=== PATIENT | male | born 1960 | race American Indian/Alaskan Native ===

== ENCOUNTER 2019-11-21 06:38 | Emergency (ER) | payer MEDICARE, OTHER ==
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
[2019-11-21 07:23] LABS: ANION GAP 16.3; CHLORIDE,CL 106 mmol/L (101-111); SODIUM,NA 142 mmol/L (135-145)
[2019-11-21] MEDS ORDERED: Ondansetron 4 MG/2 ML SDV IV ONE (09:04)
[2019-11-21] MEDS ORDERED: MVI, Adult with Vitamin K 10 ML, Thiamine 100 MG, Folic Acid 1 MG in Lactated Ringers 1... IV ONE ×4 (09:04)
[2019-11-21] MEDS ORDERED: HYDROmorphone 1 MG/ML Syringe IVPUSH ONE (09:04)
[2019-11-21] MEDS ORDERED: Sodium Chloride 0.9% 10 ML Syringe FLUSH PRN (09:04)
== END 2019-11-21 09:53 ==
LOC: DL.ED 06:38
DX: S32.049A Unspecified fracture of fourth lumbar vertebra, initial encounter for closed fracture (principal); F10.229 Alcohol dependence with intoxication, unspecified; N39.498 Other specified urinary incontinence; I48.91 Unspecified atrial fibrillation; F12.10 Cannabis abuse, uncomplicated; Y04.2XXA Assault by strike against or bumped into by another person, initial encounter; Y90.8 Blood alcohol level of 240 mg/100 ml or more
CPT/HCPCS: 36415; 51702; 70450; 72128; 72131; 74176; 80053; 80305; 81001; 82150; 83690; 83735; 85025; 96374; 96375; 99285; G0480; J1170; J2405; J3411; J7120; J3490

== ENCOUNTER 2020-06-26 11:50 | Observation (INO) | payer MEDICARE, OTHER ==
--- NOTE | 2020-06-26 12:26 | CR ---
PROCEDURE INFORMATION: Exam: XR Chest, 1 View Exam date and time: 06/26/2020 12:02 PM Age: 60 years old Clinical indication: Chest pain TECHNIQUE: Imaging protocol: XR of the chest Views: 1 view. COMPARISON: CR Chest 1V Frontal 11/22/2018 8:56 PM FINDINGS: Lungs: Unremarkable. No consolidation. Calcification projecting over the right upper chest laterally likely is related to a rib ending, this is unchanged. Pleural space: Unremarkable. No pleural effusion. No pneumothorax. Heart/Mediastinum: Unremarkable. No cardiomegaly. Bones/joints: Unremarkable. IMPRESSION: No acute findings.
[2020-06-26 12:28] LABS: ANION GAP 18.4 mEq/L (7-13); CHLORIDE,CL 99 mmol/L (98-107); SODIUM,NA 138 mmol/L (136-145)
[2020-06-26] MEDS: Sodium Chloride 0.9% 10 ML Syringe FLUSH PRN ×3 (12:32→14:41)
[2020-06-26 12:37] LABS: PTT,PARTIAL THROMBOPLSTIN TIME 25.3 SEC (22.0-34.0)
[2020-06-26] MEDS ORDERED: MVI, Adult with Vitamin K 10 ML, Thiamine 100 MG, Folic Acid 1 MG in Lactated Ringers 1... IV ONE ×4 (12:46)
[2020-06-26] MEDS ORDERED: Potassium Chloride 10 MEQ Tab.ER PO ONE (12:47)
[2020-06-26] MEDS ORDERED: Acetaminophen 325 MG Tab PO PRN (17:22)
[2020-06-26] MEDS ORDERED: Docusate Sodium 100 MG Cap PO PRN (17:22)
[2020-06-26] MEDS ORDERED: LORazepam 0.5 MG Tab PO PRN (17:28)
[2020-06-26] MEDS ORDERED: Metoprolol Tartrate 5 MG/5 ML SDV IVPUSH ONE (17:29)
--- NOTE | 2020-06-26 17:30 | EDM.PDOC ---
Scribed by Anita Elam 06/26/20 1209 for Carina Horn MD ED HPI GENERAL MEDICAL PROBLEM - General Chief Complaint: Cardiovascular Problem Stated Complaint: IN BY AMBULANCE Time Seen by Provider: 06/26/20 11:36 Source of Information: Reports: Patient, EMS, EMS Notes Reviewed, RN, RN Notes Reviewed History Limitations: Reports: No Limitations - History of Present Illness INITIAL COMMENTS - FREE TEXT/NARRATIVE: Patient arrives by [facility] with chest pain at 7:00 A.M. He has been having chest pain that come and got for several weeks. He was a little shaky this morning. History of atrial fibrillation. He did not realize it was a weekend and walked to [facility], then realized it was closed so he called [facility]. EMS gave Aspirin 324mg [employer]. Nitro not given due to pain being resolved. Onset: Today Duration: Getting Worse Location: Reports: Chest Quality: Reports: Ache Severity: Moderate Improves with: Reports: None Worsens with: Reports: None Associated Symptoms: Reports: No Other Symptoms chest Pain Score (Numeric/FACES): 3 - Related Data Allergies Allergy/AdvReac Type Severity Reaction Status Date / Time iodine Allergy Airway Verified 06/26/20 17:02 Tightness Home Meds: Home Meds Aspirin [Aspirin EC] 81 mg PO DAILY 06/26/20 [History] Calcium Carbonate/Vitamin D3 [Calcium 250+D] 1 each PO DAILY 06/26/20 [History] Magnesium 250 mg PO DAILY 06/26/20 [History] Metoprolol Succinate 25 mg PO DAILY 06/26/20 [History] atorvaSTATin [Lipitor] 20 mg PO BEDTIME 06/26/20 [History] Past Medical History Cardiovascular History: Reports: Afib, CAD, High Cholesterol, ID Respiratory History: Reports: None Gastrointestinal History: Reports: GI Bleed Genitourinary History: Reports: None Musculoskeletal History: Reports: Back Pain, Chronic Other Musculoskeletal History: wrist Neurological History: Reports: None Psychiatric History: Reports: Addiction Endocrine/Metabolic History: Reports: Obesity/BMI 30+ Hematologic History: Reports: None Immunologic History: Reports: None Oncologic (Cancer) History: Reports: None Dermatologic History: Reports: None - Infectious Disease History Infectious Disease History: Reports: Chicken Pox - Past Surgical History Head Surgeries/Procedures: Reports: None HEENT Surgical History: Reports: None GI Surgical History: Reports: Hernia, Abdominal Musculoskeletal Surgical History: Reports: None Social & Family History - Family History Family Medical History: Noncontributory - Caffeine Use Caffeine Use: Reports: None - Alcohol Use Alcohol Use History: Yes - Recreational Drug Use Recreational Drug Use: Yes Recreational Drug Type: Reports: Marijuana/Hashish - Living Situation & Occupation Occupation: Unemployed ED ROS GENERAL - Review of Systems Review Of Systems: Comprehensive ROS is negative, except as noted in HPI. ED EXAM, GENERAL - Physical Exam Exam: See Below Exam Limited By: No Limitations General Appearance: Alert, No Apparent Distress, Anxious Eye Exam: Bilateral Eye: Normal Inspection Nose: No Blood, Other (Rosacea) Throat/Mouth: Normal Lips, Normal Voice, No Airway Compromise Head: Atraumatic, Normocephalic Neck: Normal Inspection, Supple, Non-Tender, Full Range of Motion Respiratory/Chest: No Respiratory Distress, Lungs Clear, Normal Breath Sounds, No Accessory Muscle Use, Chest Non-Tender Cardiovascular: Regular Rate, Rhythm, No Edema GI/Abdominal: Normal Bowel Sounds, Soft, Non-Tender Back Exam: Normal Inspection Extremities: Normal Inspection, Normal Range of Motion, Non-Tender, Normal Capillary Refill, No Pedal Edema Neurological: Alert, Oriented, No Motor/Sensory Deficits, Other (Mild tremor) Psychiatric: Anxious, Flat Affect Skin Exam: Warm, Dry, Intact EKG INTERPRETATION EKG Date: 06/26/20 Time: 11:45 Rhythm: Other (sinus rhythm) Rate (Beats/Min): 98 [place]: Normal P-Wave: Present QRS: Other (LFB) ST-T: Normal QT: Normal Comparison: Change From Previous EKG (previous showed A-fib with LAFB.) Course - Vital Signs Last Recorded V/S: Last Vital Signs Temp 99.4 F 06/26/20 16:00 Pulse 120 H 06/26/20 16:00 Resp 20 06/26/20 16:00 BP 118/69 06/26/20 16:00 Pulse Ox 98 06/26/20 16:00 - Orders/Labs/Meds Orders: Active Orders 24 hr Category Date Time Status EKG 12 Lead [EKG Documentation Completion] [RC] ONETIME Care 06/26/20 16:00 Active EKG 12 Lead [EKG Documentation Completion] [RC] STAT Care 06/26/20 11:40 Active Peripheral IV Care [RC] . DIRECTED Care 06/26/20 11:41 Active Regular Diet [DIET] Diet 06/26/20 Lunch Active Sodium Chloride 0.9% [Saline Flush] Med 06/26/20 11:40 Active 10 ml FLUSH ASDIRECTED PRN Peripheral IV Insertion Adult [OM.PC] Stat Oth 06/26/20 11:40 Ordered Medication Orders Acetaminophen (Tylenol) 650 mg PO Q4H PRN PRN Reason: Pain (Mild 1-3)/fever Aspirin (Halfprin) 81 mg PO DAILY [facility] Atorvastatin Calcium (Lipitor) 20 mg PO BEDTIME [facility] Docusate Sodium (Colace) 100 mg PO BID PRN PRN Reason: Constipation Enoxaparin Sodium (Lovenox) 40 mg SUBCUT DAILY [facility] Sodium Chloride (Normal Saline) 1,000 mls @ 125 mls/hr IV ASDIRECTED [facility] Metoprolol Succinate (Toprol Xl) 25 mg PO DAILY [facility] Nicotine (Habitrol) 7 mg TRDERM DAILY [facility] Non-Formulary Medication (Calcium Carbonate/Vitamin D3 [Calcium 250+D]) 1 each PO DAILY [facility] Non-Formulary Medication (Magnesium [Magnesium]) 250 mg PO DAILY [facility] Oxycodone/Acetaminophen (Percocet 325-5 Mg) 1 tab PO Q4H PRN PRN Reason: Pain (moderate 4-6) Sodium Chloride (Saline Flush) 10 ml FLUSH ASDIRECTED PRN PRN Reason: Keep Vein Open Last Admin: 06/26/20 14:41 Dose: 10 ml Documented by: Admin: 06/26/20 13:34 Dose: 10 ml Documented by: Admin: 06/26/20 12:32 Dose: 10 ml Documented by: MARISSA Labs: Laboratory Tests 06/26/20 06/26/20 06/26/20 Range/Units 11:52 11:52 11:52 WBC 9.8 (5.0-10.0) 10^3/uL RBC 5.16 (4.6-6.2) 10^6/uL Hgb 16.1 (14.0-18.0) g/dL Hct 45.6 (40.0-54.0) % MCV 88.4 D (80-100) fL MCH 31.2 (27.0-34.0) pg MCHC 35.3 H (33.0-35.0) g/dL Plt Count 213 (150-450) 10^3/uL Neut % (Auto) 69.3 (42.2-75.2) % Lymph % (Auto) 21.6 (20.5-50.1) % [place] % (Auto) 8.1 H (2-8) % Eos % (Auto) 0.6 L (1.0-3.0) % Baso % (Auto) 0.4 (0.0-1.0) % PT 10.4 (9.0-12.0) SEC INR 1.1 (0.9-1.2) APTT 25.3 (22.0-34.0) SEC Sodium 138 (136-145) mmol/L Potassium 3.4 L (3.5-5.1) mmol/L Chloride 99 (98-107) mmol/L Carbon Dioxide 24 (21-32) mmol/L Anion Gap 18.4 H (7-13) mEq/L BUN 11 (7-18) mg/dL Creatinine 1.05 (0.70-1.30) mg/dL Est Cr Clr Drug Dosing 83.49 mL/min Estimated GFR (MDRD) > 60 BUN/Creatinine Ratio 10.5 (No establ ref range) Glucose 118 H (74-99) mg/dL Calcium 8.2 L (8.5-10.1) mg/dL Magnesium 1.6 L (1.8-2.4) mg/dL Total Bilirubin 1.1 H (0.2-1.0) mg/dL AST 58 H (15-37) U/L ALT 38 (16-63) U/L Alkaline Phosphatase 177 H (46-116) U/L Troponin I 0.038 (0.000-0.056) ng/mL Total Protein 7.2 (6.4-8.2) g/dL Albumin 3.7 (3.4-5.0) g/dL Globulin 3.5 Albumin/Globulin Ratio 1.1 Lipase 80 (73-393) U/L TSH, Ultra Sensitive 1.40 (0.36-3.74) uIU/mL Urine Color (YELLOW) Urine Appearance (CLEAR) Urine pH (5.0-9.0) Ur Specific [place] (1.005-1.030) Urine Protein (NEGATIVE) Urine Glucose (UA) (NEGATIVE) Urine Ketones (NEGATIVE) Urine Occult Blood (NEGATIVE) Urine Nitrite (NEGATIVE) Urine Bilirubin (NEGATIVE) Urine Urobilinogen (0.2-1.0) mg/dL Ur Leukocyte Esterase (NEGATIVE) U Hyaline Cast (Auto) Urine RBC /HPF Urine WBC (0-5/HPF) /HPF Ur Epithelial Cells (NOT SEEN) /HPF Amorphous Sediment (NOT SEEN) /HPF Urine Bacteria (0-FEW/HPF) /HPF Fine Granular Casts (NOT SEEN) /LPF Urine Mucus (NOT SEEN) /LPF Urine Opiates Screen (NEGATIVE) Ur Oxycodone Screen (NEGATIVE) Urine Methadone Screen (NEGATIVE) Ur Barbiturates Screen (NEGATIVE) U Tricyclic Antidepress (NEGATIVE) Ur Phencyclidine Scrn (NEGATIVE) Ur Amphetamine Screen (NEGATIVE) U Methamphetamines Scrn (NEGATIVE) Urine MDMA Screen (NEGATIVE) U Benzodiazepines Scrn (NEGATIVE) Urine Cocaine Screen (NEGATIVE) U Marijuana (THC) Screen (NEGATIVE) Ethyl Alcohol 187 (0) mg/dL 06/26/20 06/26/20 06/26/20 Range/Units 14:50 14:50 16:09 WBC (5.0-10.0) 10^3/uL RBC (4.6-6.2) 10^6/uL Hgb (14.0-18.0) g/dL Hct (40.0-54.0) % MCV (80-100) fL MCH (27.0-34.0) pg MCHC (33.0-35.0) g/dL Plt Count (150-450) 10^3/uL Neut % (Auto) (42.2-75.2) % Lymph % (Auto) (20.5-50.1) % [place] % (Auto) (2-8) % Eos % (Auto) (1.0-3.0) % Baso % (Auto) (0.0-1.0) % PT (9.0-12.0) SEC INR (0.9-1.2) APTT (22.0-34.0) SEC Sodium (136-145) mmol/L Potassium (3.5-5.1) mmol/L Chloride (98-107) mmol/L Carbon Dioxide (21-32) mmol/L Anion Gap (7-13) mEq/L BUN (7-18) mg/dL Creatinine (0.70-1.30) mg/dL Est Cr Clr Drug Dosing mL/min Estimated GFR (MDRD) BUN/Creatinine Ratio (No establ ref range) Glucose (74-99) mg/dL Calcium (8.5-10.1) mg/dL Magnesium (1.8-2.4) mg/dL Total Bilirubin (0.2-1.0) mg/dL AST (15-37) U/L ALT (16-63) U/L Alkaline Phosphatase (46-116) U/L Troponin I 0.038 (0.000-0.056) ng/mL Total Protein (6.4-8.2) g/dL Albumin (3.4-5.0) g/dL Globulin Albumin/Globulin Ratio Lipase (73-393) U/L TSH, Ultra Sensitive (0.36-3.74) uIU/mL Urine Color [place] (YELLOW) Urine Appearance Slightly cloudy (CLEAR) Urine pH 7.0 (5.0-9.0) Ur Specific [place] 1.025 (1.005-1.030) Urine Protein 100 H (NEGATIVE) Urine Glucose (UA) Negative (NEGATIVE) Urine Ketones 40 H (NEGATIVE) Urine Occult Blood Trace-intact H (NEGATIVE) Urine Nitrite Negative (NEGATIVE) Urine Bilirubin Small H (NEGATIVE) Urine Urobilinogen 1.0 (0.2-1.0) mg/dL Ur Leukocyte Esterase Negative (NEGATIVE) U Hyaline Cast (Auto) Few Urine RBC 0-5 /HPF Urine WBC 0-5 (0-5/HPF) /HPF Ur Epithelial Cells Few (NOT SEEN) /HPF Amorphous Sediment Few (NOT SEEN) /HPF Urine Bacteria Few (0-FEW/HPF) /HPF Fine Granular Casts Few H (NOT SEEN) /LPF Urine Mucus Moderate H (NOT SEEN) /LPF Urine Opiates Screen Negative (NEGATIVE) Ur Oxycodone Screen Negative (NEGATIVE) Urine Methadone Screen Negative (NEGATIVE) Ur Barbiturates Screen Negative (NEGATIVE) U Tricyclic Antidepress Negative (NEGATIVE) Ur Phencyclidine Scrn Negative (NEGATIVE) Ur Amphetamine Screen Negative (NEGATIVE) U Methamphetamines Scrn Negative (NEGATIVE) Urine MDMA Screen Negative (NEGATIVE) U Benzodiazepines Scrn Negative (NEGATIVE) Urine Cocaine Screen Negative (NEGATIVE) U Marijuana (THC) Screen Positive H (NEGATIVE) Ethyl Alcohol (0) mg/dL Meds: Medications Generic Name Dose Route Start Last Admin Trade Name Freq PRN Reason Stop Dose Admin Acetaminophen 650 mg 06/26/20 17:22 Tylenol PO Q4H PRN Pain (Mild 1-3)/fever Aspirin 81 mg 06/27/20 09:00 Halfprin PO DAILY [facility] Atorvastatin Calcium 20 mg 06/26/20 21:00 Lipitor PO BEDTIME [facility] Docusate Sodium 100 mg 06/26/20 17:22 Colace PO BID PRN Constipation Enoxaparin Sodium 40 mg 06/26/20 17:30 Lovenox SUBCUT DAILY [facility] Sodium Chloride 1,000 mls @ 125 mls/hr 06/26/20 17:30 Normal Saline IV ASDIRECTED [facility] Metoprolol Succinate 25 mg 06/27/20 09:00 Toprol Xl PO DAILY [facility] Nicotine 7 mg 06/27/20 09:00 Habitrol TRDERM DAILY [facility] Non-Formulary Medication 1 each 06/27/20 09:00 Calcium Carbonate/Vitamin D3 [Calcium 250+D] PO DAILY [facility] Non-Formulary Medication 250 mg 06/27/20 09:00 Magnesium [Magnesium] PO DAILY [facility] Oxycodone/Acetaminophen 1 tab 06/26/20 17:22 Percocet 325-5 Mg PO Q4H PRN Pain (moderate 4-6) Sodium Chloride 10 ml 06/26/20 11:40 06/26/20 14:41 Saline Flush FLUSH 10 ml ASDIRECTED PRN Administration Keep Vein Open Discontinued Medications Generic Name Dose Route Start Last Admin Trade Name Freq PRN Reason Stop Dose Admin Multivitamins/Minerals 10 ml/ 1,011.2 mls @ 999 mls/hr 06/26/20 12:46 06/26/20 14:41 Thiamine HCl 100 mg/ Folic IV 06/26/20 13:46 Infused Acid 1 mg/ Lactated Ringer's .BOLUS ONE Infusion Potassium Chloride 40 meq 06/26/20 12:47 06/26/20 13:32 Klor-Con 10 PO 06/26/20 12:48 40 meq ONETIME ONE Administration - Radiology Interpretation Free Text/Narrative:: [facility] Final Radiology Report Call: [phone] assistance Online chat: [email or web address] Name: LIU COOPER Age: 60Years M Date: 06/26/2020 SSN: -- : [id number] Study: CR CHEST 1V FRONTAL Requesting Physician: CARINA HORN Images: 1 Addl Studies: Provided Clinical History: chest pain Contrast: Contrast Medium: Contrast Amount: Contrast Method: CONFIDENTIALITY STATEMENT This report is intended only for use by the referring physician, and only in accordance with law. If you received this in error, call [phone]. Page 1 of 1 PROCEDURE INFORMATION: Exam: XR Chest, 1 View Exam date and time: 06/26/2020 12:02 PM Age: 60 years old Clinical indication: Chest pain TECHNIQUE: Imaging protocol: XR of the chest Views: 1 view. COMPARISON: CR Chest 1V Frontal 11/22/2018 8:56 PM FINDINGS: Lungs: Unremarkable. No consolidation. Calcification projecting over the right upper chest laterally likely is related to a rib ending, this is unchanged. Pleural space: Unremarkable. No pleural effusion. No pneumothorax. Heart/Mediastinum: Unremarkable. No cardiomegaly. Bones/joints: Unremarkable. IMPRESSION: No acute findings. Thank you for allowing us to participate in the care of your patient. Dictated and Authenticated by: Pravin Godoy MD 06/26/2020 12:25 PM Central Time ([place] & [place]) - Re-Assessments/Exams Free Text/Narrative Re-Assessment/Exam: 06/26/20 17:28 Ischemic cardiac source of chest pain ruled out, but pt converted to A-fib with RVR. Plan to admit to Dr. Pak to obs. Departure - Departure Time of Disposition: 17:00 (admitted to Dr. Pak) Disposition: Refer to Observation Condition: Good, Undetermined Clinical Impression: Paroxysmal atrial fibrillation with rapid ventricular response Sepsis Event Note (ED) - Focused Exam Vital Signs: Vital Signs Temp Pulse Resp BP Pulse Ox 06/26/20 16:00 99.4 F 120 H 20 118/69 98 06/26/20 13:40 100.8 F H 83 20 118/71 97 06/26/20 11:42 98.1 F 88 19 121/83 99 - My Orders Last 24 Hours: My Active Orders 06/26/20 11:40 EKG 12 Lead [EKG Documentation Completion] [RC] STAT Sodium Chloride 0.9% [Saline Flush] 10 ml FLUSH ASDIRECTED PRN Peripheral IV Insertion Adult [OM.PC] Stat 06/26/20 11:41 Peripheral IV Care [RC] . DIRECTED 06/26/20 Lunch Regular Diet [DIET] 06/26/20 16:00 EKG 12 Lead [EKG Documentation Completion] [RC] ONETIME - Assessment/Plan Last 24 Hours: My Active Orders 06/26/20 11:40 EKG 12 Lead [EKG Documentation Completion] [RC] STAT Sodium Chloride 0.9% [Saline Flush] 10 ml FLUSH ASDIRECTED PRN Peripheral IV Insertion Adult [OM.PC] Stat 06/26/20 11:41 Peripheral IV Care [RC] . DIRECTED 06/26/20 Lunch Regular Diet [DIET] 06/26/20 16:00 EKG 12 Lead [EKG Documentation Completion] [RC] ONETIME I have read and agree with the documentation that has been completed regarding this visit. By signing this record, I attest that the documentation was completed in my physical presence and is an accurate record of the encounter.
[2020-06-26] MEDS ORDERED: LORazepam 2 MG/ML SDV IVPUSH PRN (17:35)
[2020-06-26] MEDS: Metoprolol Succinate 50 MG Tab.ER PO SCH (18:46)
[2020-06-26] MEDS: Enoxaparin 40 MG/0.4 ML Syringe SUBCUT SCH (18:47)
--- NOTE | 2020-06-26 19:10 | HP ---
CHIEF COMPLAINT: Chest pain. HISTORY OF PRESENT ILLNESS: The patient is a 60-year-old male with past medical history of lumbar compression fracture, alcohol abuse, marijuana abuse, and paroxysmal atrial fibrillation who was admitted through the emergency room because the patient was brought by ambulance, and at about noontime today, he walked about 1-1/2 miles and he twisted his knee and then he started having chest pain, palpitation, and diaphoresis. Because of this, he called an ambulance. He was brought into the emergency room, and in the emergency room, cardiac workup was done and 2 sets of troponin were done, and it came back negative, but while patient is in the emergency room, he went into atrial fibrillation with rapid ventricular response, and because of this, he was then admitted to observation for further evaluation and management. PAST MEDICAL HISTORY: As in HPI. HOME MEDICATIONS: Lipitor, metoprolol succinate, calcium carbonate, and aspirin. ALLERGIES: Iodine. REVIEW OF SYSTEMS: The patient denies any headaches, syncope, orthopnea, PND, fever, chills, abdominal pain, melena, hematochezia, or any other significant complaints. SOCIAL HISTORY: The patient smokes about 4 cigarettes a day, and he has been smoking for the last 30 years. He also drinks about a pint of vodka every time he gets his disability cheque, and he does it about once a month, and yesterday, he had alcohol because he recently got his cheque, but he does not drink every day. PHYSICAL EXAMINATION: General: The patient is very pleasant. He is alert and oriented, ambulatory, and not in any acute distress. SHEENT: Normocephalic. There are pink palpebral conjunctivae. Sclerae anicteric. No JVD, no lymphadenopathy. Heart: Irregular and tachycardic. No gallops. No rubs. Lungs: Equal bilaterally. No crackles, no wheezing. Abdomen: Moderately obese, soft, and nontender. Extremities: Negative for any pedal edema. No gross deformities. LABORATORY WORKUP: CBC: WBC 9.8, hemoglobin is 16.1, hematocrit is 45.6, and platelets 213. Prothrombin time, INR is 1.1. Comp panel: Potassium is 3.4, magnesium is 1.6, and AST is 58. The rest of the panel unremarkable and TSH is 1.4, which is within normal limits. Urinalysis is remarkable for protein of 100, otherwise, unremarkable. Urine drug screen is positive for marijuana screen. Alcohol level is 187. ADMITTING DIAGNOSES: 1. Atrial fibrillation with rapid ventricular response. 2. Alcohol intoxication. 3. Dyslipidemia. 4. History of lumbar compression fracture. 5. Hypomagnesemia. 6. Hypokalemia. 7.Left knee pain TREATMENT PLAN: The patient is going to be admitted to telemetry floor for observation. He will be placed on DT protocol and potassium and magnesium will be repleted, and another set of troponin will be done tomorrow, and the rest of the management as necessary. We will also resume his home medications. [facility] /[id number] MACK
[2020-06-26] MEDS: Sodium Chloride 0.9% 1,000 ML IV SCH (20:35)
[2020-06-26] MEDS: Acetaminophen/oxyCODONE 325-5 MG Tab PO PRN (20:40)
[2020-06-26] MEDS ORDERED: Thiamine 100 MG Tab PO SCH (21:00)
[2020-06-26] MEDS ORDERED: Folic Acid 1 MG Tab PO SCH (21:00)
[2020-06-26] MEDS ORDERED: Multivitamins, Therapeutic with Minerals Tab PO SCH (21:00)
[2020-06-26] MEDS ORDERED: atorvaSTATin 20 MG Tab PO SCH (21:00)
[2020-06-27] MEDS: Acetaminophen/oxyCODONE 325-5 MG Tab PO PRN ×2 (03:13→09:32)
[2020-06-27] MEDS: Sodium Chloride 0.9% 1,000 ML IV SCH (04:23)
[2020-06-27 06:50] LABS: ANION GAP 11.4 mEq/L (7-13); CHLORIDE,CL 103 mmol/L (98-107); SODIUM,NA 140 mmol/L (136-145)
[2020-06-27] MEDS: Enoxaparin 40 MG/0.4 ML Syringe SUBCUT SCH (08:29)
[2020-06-27] MEDS: Metoprolol Succinate 50 MG Tab.ER PO SCH (08:29)
[2020-06-27] MEDS ORDERED: Calcium Carbonate/Vitamin D3 1250 MG-200 Unit Tab PO SCH (09:00)
[2020-06-27] MEDS ORDERED: Non-Formulary Medication 1 Each (Magnesium [Magnesium] 250 MG) PO SCH (09:00)
[2020-06-27] MEDS ORDERED: Aspirin 81 MG Tab.EC PO SCH (09:00)
[2020-06-27] MEDS ORDERED: Potassium Chloride 10 MEQ Tab.ER PO ONE (09:00)
[2020-06-27] MEDS ORDERED: Nicotine 7 MG/24 Hr Patch TRDERM SCH (09:00)
[2020-06-27] MEDS ORDERED: Metoprolol Succinate 25 MG Tab.ER PO SCH (09:00)
--- NOTE | 2020-06-27 10:31 | PN ---
DATE: 06/27/2020 SUBJECTIVE: The patient is doing much better this morning, and the patient denies any more chest pain or palpitation, and he converted to sinus rhythm with IV metoprolol. The patient was also complaining of left knee pain, and x-ray of the left knee was ordered, but the official reading is still pending. Otherwise, no other complaints, and telemetry this morning is sinus rhythm with a rate of 58. OBJECTIVE: Vital Signs: Blood pressure is 104/60, pulse of 52, respirations of 18, temperature of 97.1, and O2 saturation is 97% on room air. Heart: Regular rate and rhythm. Normal S1 and S2. No gallops. No rubs. Lungs: Equal bilaterally. No crackles, no wheezing. Abdomen: Soft, nontender. Bowel sounds are positive. Extremities: Negative for any pedal edema. No calf tenderness. Examination of the left knee is negative for any gross deformities and no signs of cellulitis. LABORATORY DATA: Laboratory workup this morning. CBC: WBC 7.5, hemoglobin is 14.1, hematocrit is 41.5, and platelet is 181. Chem-6: Potassium is 3.4, magnesium is 1.7, and calcium of 8. The rest of the panel unremarkable. PLAN: We will discharge patient home today, and we will have him follow up with Drea Garcia at [facility] next week. CONDITION ON DISCHARGE: Improved. [facility] /[id number]
--- NOTE | 2020-06-27 11:56 | CR ---
PROCEDURE INFORMATION: Exam: XR Left Knee Exam date and time: 06/27/2020 8:00 AM Age: 60 years old Clinical indication: Pain; Knee; Left; Additional info: Pain/stiffness TECHNIQUE: Imaging protocol: XR Left knee. Views: 1 or 2 views. COMPARISON: MR Knee wo Cont Lt 12/18/2018 1:02 PM FINDINGS: Bones/joints: Advanced degenerative arthritis. Medial and joint compartment severe degenerative narrowing. Patellofemoral joint severe degeneration. Chondrocalcinosis. Small joint effusion. No fracture or dislocation. Soft tissues: Normal. IMPRESSION: 1. Advanced degenerative arthritis with joint space narrowing, chondrocalcinosis, and marginal joint osteophytes. 2. No acute fracture or dislocation. 3. Small joint effusion.
--- NOTE | 2020-06-27 19:04 | DISCH ---
FINAL DIAGNOSES: 1. Atrial fibrillation with rapid ventricular response and converted to sinus rhythm with intravenous metoprolol. 2. Alcohol intoxication. 3. Dyslipidemia. 4. History of lumbar compression fracture. 5. Hypomagnesemia. 6. Hypokalemia. 7. Left knee pain, possibly secondary to sprain. HOSPITAL COURSE: The patient was admitted to observation. He was placed on telemetry, and because of his atrial fibrillation with rapid ventricular response, the patient was given 5 mg of metoprolol tartrate and his oral metoprolol was increased to 50 mg a day. The patient converted to sinus rhythm, and he remained in sinus rhythm until discharge. His potassium was also repleted orally as well as magnesium. The patient was complaining of left knee pain, and an x-ray of the left knee, my reading did not show any gross fractures, and this was most likely secondary to sprain. The rest of the hospital course was unremarkable, and he was subsequently discharged, and he is going to follow up with his primary care provider in [facility] next week for a recheck. [facility] /[id number]
== END 2020-06-27 11:15 | disposition home or self-care (01) ==
LOC: DL.ED 11:50 → UNDOADMOB 16:52 → DL.MS 16:52
PROVIDERS: ADMIT Internal Medicine; ATTEND Internal Medicine
DX: I48.0 Paroxysmal atrial fibrillation (principal); F17.210 Nicotine dependence, cigarettes, uncomplicated; F10.129 Alcohol abuse with intoxication, unspecified; E78.5 Hyperlipidemia, unspecified; E83.42 Hypomagnesemia; E87.6 Hypokalemia; M25.562 Pain in left knee; E78.00 Pure hypercholesterolemia, unspecified; E66.9 Obesity, unspecified; Z91.041 Radiographic dye allergy status; Z79.899 Other long term (current) drug therapy; Z87.81 Personal history of (healed) traumatic fracture; Z68.31 Body mass index [BMI] 31.0-31.9, adult; Y90.0 Blood alcohol level of less than 20 mg/100 ml
CPT/HCPCS: 36415; 71045; 73560-LT; 80048; 80053; 80305-QW; 80307; 81001; 83690; 83735; 84443; 84484; 85025; 85610; 85730; 93005; 96361; 96365; 96372; 96375; 99285-25; A9270-GY; G0378; J1650; J3411; J3490; J7030; J7120

== ENCOUNTER 2021-02-28 14:19 | Emergency (ER) | payer MEDICARE, OTHER ==
[2021-02-28] MEDS ORDERED: Sodium Chloride 0.9% 10 ML Syringe FLUSH PRN (14:25)
--- NOTE | 2021-02-28 14:25 | EDM.PDOC ---
ED HPI GENERAL MEDICAL PROBLEM - General Chief Complaint: Flank Pain Stated Complaint: LEFT SIDE PAIN VERY TERRIBLE VOMMITING Time Seen by Provider: 02/28/21 14:24 Source of Information: Reports: Patient, Old Records, RN, RN Notes Reviewed History Limitations: Reports: No Limitations - History of Present Illness INITIAL COMMENTS - FREE TEXT/NARRATIVE: Pt presents to ER from home by POV with c/o severe left flank pain that radiates to the LLQ abdomen. Pt arrives in distress from pain, retching and vomiting. The pain began 2 days ago, and been waxing and waning, but now has become severe. He reports that he had many polyps removed during a colonoscopy in January 2021, and has had pink to blood stools since then. He says he informed the GI specialist and she was not concerned. He is on Eliquis for chronic a-fib. Onset: Sudden Duration: Waxing/Waning Location: Reports: Abdomen, Back Quality: Reports: Ache Severity: Severe Improves with: Reports: None Worsens with: Reports: None Associated Symptoms: Reports: No Other Symptoms Left Flank Pain Score (Numeric/FACES): 10 - Related Data Allergies Allergy/AdvReac Type Severity Reaction Status Date / Time iodine Allergy Airway Verified 06/26/20 17:02 Tightness Home Meds: Home Meds Aspirin [Aspirin EC] 81 mg PO DAILY 06/26/20 [History] Calcium Carbonate/Vitamin D3 [Calcium 250+D] 1 each PO DAILY 06/26/20 [History] atorvaSTATin [Lipitor] 20 mg PO BEDTIME 06/26/20 [History] Multivitamins/Minerals [Vitamins and Minerals] 1 tab PO BEDTIME tablet 06/27/20 [Rx] Acetaminophen 1,000 mg PO Q6HR PRN 09/27/20 [History] Diclofenac Sodium [Voltaren 1% Gel] 1 dose TOP ASDIRECTED PRN 09/27/20 [History] Magnesium Oxide 400 mg PO DAILY 09/27/20 [History] Metoprolol Succinate [Toprol XL] 25 mg PO DAILY 09/27/20 [History] Thiamine HCl [Vitamin B-1] 100 mg PO DAILY 09/27/20 [History] Past Medical History HEENT History: Reports: Impaired Vision Cardiovascular History: Reports: Afib, CAD, High Cholesterol, RI Other Cardiovascular History: RI in 2017 Respiratory History: Reports: None Gastrointestinal History: Reports: GI Bleed Genitourinary History: Reports: None Musculoskeletal History: Reports: Back Pain, Chronic Other Musculoskeletal History: wrist Neurological History: Reports: None Psychiatric History: Reports: Addiction Endocrine/Metabolic History: Reports: Obesity/BMI 30+ Hematologic History: Reports: None Immunologic History: Reports: None Oncologic (Cancer) History: Reports: None Dermatologic History: Reports: None - Infectious Disease History Infectious Disease History: Reports: Chicken Pox - Past Surgical History Head Surgeries/Procedures: Reports: None HEENT Surgical History: Reports: None GI Surgical History: Reports: Hernia, Abdominal Musculoskeletal Surgical History: Reports: None Social & Family History - Family History Family Medical History: No Pertinent Family History - Caffeine Use Caffeine Use: Reports: None - Living Situation & Occupation Occupation: Unemployed ED ROS GENERAL - Review of Systems Review Of Systems: Comprehensive ROS is negative, except as noted in HPI. ED EXAM, RENAL/ - Physical Exam Exam: See Below Exam Limited By: No Limitations General Appearance: Alert, WD/WN, No Apparent Distress Eye Exam: Bilateral Eye: Normal Inspection (No scleral icterus) Nose: Normal Inspection Throat/Mouth: Normal Inspection, Normal Lips, Normal Voice, No Airway Compromise Head: Atraumatic, Normocephalic Neck: Normal Inspection Respiratory/Chest: No Respiratory Distress, Lungs Clear, Normal Breath Sounds, No Accessory Muscle Use, Chest Non-Tender Cardiovascular: Regular Rate, Rhythm, Tachycardia GI/Abdominal: Normal Bowel Sounds, Soft, No Organomegaly, Guarding, Tender (LLQ, left flank tenderness). No: Rigid, Rebound (Male) Exam: Deferred Rectal (Males) Exam: Deferred Back Exam: CVA Tenderness (L). No: CVA Tenderness (R) Extremities: Normal Inspection Neurological: Alert, Oriented, No Motor/Sensory Deficits Psychiatric: Normal Mood Skin Exam: Warm, Intact, Normal Color, Diaphoretic Course - Vital Signs Last Recorded V/S: Last Vital Signs Temp 95.5 F L 02/28/21 14:38 Pulse 110 H 02/28/21 14:38 Resp 24 H 02/28/21 14:38 BP 145/84 H 02/28/21 14:38 Pulse Ox 100 02/28/21 14:38 - Orders/Labs/Meds Orders: Active Orders 24 hr Category Date Time Status Peripheral IV Care [RC] . DIRECTED Care 02/28/21 14:26 Active Sodium Chloride 0.9% [Saline Flush] Med 02/28/21 14:25 Active 10 ml FLUSH ASDIRECTED PRN Peripheral IV Insertion Adult [OM.PC] Stat Oth 02/28/21 14:25 Ordered Medication Orders Sodium Chloride (Sodium Chloride 0.9% 10 Ml Syringe) 10 ml FLUSH ASDIRECTED PRN PRN Reason: Keep Vein Open Last Admin: 02/28/21 14:42 Dose: 10 ml Documented by: MARILU Labs: Laboratory Tests 02/28/21 02/28/21 02/28/21 Range/Units 14:30 14:30 14:30 WBC 10.4 H (5.0-10.0) 10^3/uL RBC 5.31 (4.6-6.2) 10^6/uL Hgb 16.7 D (14.0-18.0) g/dL Hct 47.9 (40.0-54.0) % MCV 90.2 (80-100) fL MCH 31.5 (27.0-34.0) pg MCHC 34.9 (33.0-35.0) g/dL Plt Count 151 (150-450) 10^3/uL Neut % (Auto) 65.7 (42.2-75.2) % Lymph % (Auto) 26.1 (20.5-50.1) % Jenkins % (Auto) 7.2 (2-8) % Eos % (Auto) 0.2 L (1.0-3.0) % Baso % (Auto) 0.8 (0.0-1.0) % PT 10.5 (9.0-12.0) SEC INR 1.0 (0.9-1.2) APTT 24.4 (22.0-34.0) SEC Sodium 139 (136-145) mmol/L Potassium 3.3 L (3.5-5.1) mmol/L Chloride 98 (98-107) mmol/L Carbon Dioxide 24 (21-32) mmol/L Anion Gap 20.3 H (7-13) mEq/L BUN 9 (7-18) mg/dL Creatinine 1.04 (0.70-1.30) mg/dL Est Cr Clr Drug Dosing TNP Estimated GFR (MDRD) > 60 BUN/Creatinine Ratio 8.7 (No establ ref range) Glucose 121 H (70-99) mg/dL Lactic Acid (0.4-2.0) mmol/L Calcium 8.6 (8.5-10.1) mg/dL Total Bilirubin 1.2 H (0.2-1.0) mg/dL AST 83 H (15-37) U/L ALT 80 H (16-63) U/L Alkaline Phosphatase 180 H (46-116) U/L Total Protein 7.3 (6.4-8.2) g/dL Albumin 3.7 (3.4-5.0) g/dL Globulin 3.6 Albumin/Globulin Ratio 1.0 Amylase 35 (25-115) U/L Lipase 130 (73-393) U/L Urine Color (YELLOW) Urine Appearance (CLEAR) Urine pH (5.0-9.0) Ur Specific Grubbs (1.005-1.030) Urine Protein (NEGATIVE) Urine Glucose (UA) (NEGATIVE) Urine Ketones (NEGATIVE) Urine Occult Blood (NEGATIVE) Urine Nitrite (NEGATIVE) Urine Bilirubin (NEGATIVE) Urine Urobilinogen (0.2-1.0) mg/dL Ur Leukocyte Esterase (NEGATIVE) Urine RBC /HPF Urine WBC (0-5/HPF) /HPF Ur Epithelial Cells (NOT SEEN) /HPF Calcium Oxalate Crystal (NOT SEEN) /HPF Amorphous Sediment (NOT SEEN) /HPF Urine Bacteria (0-FEW/HPF) /HPF Urine Mucus (NOT SEEN) /LPF 02/28/21 02/28/21 Range/Units 14:30 16:16 WBC (5.0-10.0) 10^3/uL RBC (4.6-6.2) 10^6/uL Hgb (14.0-18.0) g/dL Hct (40.0-54.0) % MCV (80-100) fL MCH (27.0-34.0) pg MCHC (33.0-35.0) g/dL Plt Count (150-450) 10^3/uL Neut % (Auto) (42.2-75.2) % Lymph % (Auto) (20.5-50.1) % Jenkins % (Auto) (2-8) % Eos % (Auto) (1.0-3.0) % Baso % (Auto) (0.0-1.0) % PT (9.0-12.0) SEC INR (0.9-1.2) APTT (22.0-34.0) SEC Sodium (136-145) mmol/L Potassium (3.5-5.1) mmol/L Chloride (98-107) mmol/L Carbon Dioxide (21-32) mmol/L Anion Gap (7-13) mEq/L BUN (7-18) mg/dL Creatinine (0.70-1.30) mg/dL Est Cr Clr Drug Dosing Estimated GFR (MDRD) BUN/Creatinine Ratio (No establ ref range) Glucose (70-99) mg/dL Lactic Acid 6.0 H* (0.4-2.0) mmol/L Calcium (8.5-10.1) mg/dL Total Bilirubin (0.2-1.0) mg/dL AST (15-37) U/L ALT (16-63) U/L Alkaline Phosphatase (46-116) U/L Total Protein (6.4-8.2) g/dL Albumin (3.4-5.0) g/dL Globulin Albumin/Globulin Ratio Amylase (25-115) U/L Lipase (73-393) U/L Urine Color Kallie (YELLOW) Urine Appearance Cloudy (CLEAR) Urine pH 5.5 (5.0-9.0) Ur Specific Grubbs >= 1.030 (1.005-1.030) Urine Protein 30 H (NEGATIVE) Urine Glucose (UA) Negative (NEGATIVE) Urine Ketones Trace H (NEGATIVE) Urine Occult Blood Large H (NEGATIVE) Urine Nitrite Negative (NEGATIVE) Urine Bilirubin Small H (NEGATIVE) Urine Urobilinogen 0.2 (0.2-1.0) mg/dL Ur Leukocyte Esterase Negative (NEGATIVE) Urine RBC 75-100 H /HPF Urine WBC 0-5 (0-5/HPF) /HPF Ur Epithelial Cells Few (NOT SEEN) /HPF Calcium Oxalate Crystal Few H (NOT SEEN) /HPF Amorphous Sediment Few (NOT SEEN) /HPF Urine Bacteria Rare (0-FEW/HPF) /HPF Urine Mucus Moderate H (NOT SEEN) /LPF Meds: Medications Generic Name Dose Route Start Last Admin Trade Name Freq PRN Reason Stop Dose Admin Sodium Chloride 10 ml 02/28/21 14:25 02/28/21 14:42 Sodium Chloride 0.9% 10 Ml Syringe FLUSH 10 ml ASDIRECTED PRN Administration Keep Vein Open Discontinued Medications Generic Name Dose Route Start Last Admin Trade Name Charan PRN Reason Stop Dose Admin Hydromorphone HCl 1 mg 02/28/21 14:26 02/28/21 14:40 Hydromorphone 1 Mg/Ml Syringe IVPUSH 02/28/21 14:27 1 mg ONETIME ONE Administration Hydromorphone HCl Confirm 02/28/21 14:45 Hydromorphone 1 Mg/Ml Syringe Administered 02/28/21 14:46 Dose 1 mg .ROUTE .STK-MED ONE Sodium Chloride 1,000 mls @ 999 mls/hr 02/28/21 14:26 02/28/21 14:39 Normal Saline IV 02/28/21 15:26 999 mls/hr .BOLUS ONE Administration Ondansetron HCl 4 mg 02/28/21 14:26 02/28/21 14:41 Ondansetron 4 Mg/2 Ml Sdv IV 02/28/21 14:27 4 mg ONETIME ONE Administration - Radiology Interpretation Free Text/Narrative:: CT Abd/Pelvis: left distal ureter stone, obstructing, 5mm x 2.3mm. See Rad report. - Re-Assessments/Exams Free Text/Narrative Re-Assessment/Exam: 02/28/21 16:[address] Fleming via [facility]. He will have the pt set up for a tele-med. appointment tomorrow at 1000HRS, and tentatively plan to take the pt to the OR on 03/02/21. Departure - Departure Time of Disposition: 16:53 Disposition: Home, Self-Care 01 Condition: Good Clinical Impression: Kidney stone on left side, Lactic acidosis - Discharge Information *PRESCRIPTION DRUG MONITORING PROGRAM REVIEWED*: No *COPY OF PRESCRIPTION DRUG MONITORING REPORT IN PATIENT COURTNEY: No Instructions: Kidney Stones, Renal Colic Forms: ED Department Discharge Additional Instructions: Rx: Percocet 5mg/325mg Rx: Zofran 4mg You have a telemedicine appointment at [facility] tomorrow March 01 at 10:00AM with Lupe CUNNINGHAM from [facility]. Return to ER if your pain is uncontrolled or if you develop a fever. Sepsis Event Note (ED) - Focused Exam Vital Signs: Vital Signs Temp Pulse Resp BP Pulse Ox 02/28/21 14:38 95.5 F L 110 H 24 H 145/84 H 100 - My Orders Last 24 Hours: My Active Orders 02/28/21 14:25 Sodium Chloride 0.9% [Saline Flush] 10 ml FLUSH ASDIRECTED PRN Peripheral IV Insertion Adult [OM.PC] Stat 02/28/21 14:26 Peripheral IV Care [RC] . DIRECTED - Assessment/Plan Last 24 Hours: My Active Orders 02/28/21 14:25 Sodium Chloride 0.9% [Saline Flush] 10 ml FLUSH ASDIRECTED PRN Peripheral IV Insertion Adult [OM.PC] Stat 02/28/21 14:26 Peripheral IV Care [RC] . DIRECTED
[2021-02-28] MEDS ORDERED: Ondansetron 4 MG/2 ML SDV IV ONE ×2 (14:26→17:00)
[2021-02-28] MEDS ORDERED: Sodium Chloride 0.9% 1,000 ML IV ONE (14:26)
[2021-02-28] MEDS ORDERED: HYDROmorphone 1 MG/ML Syringe IVPUSH ONE ×2 (14:26→17:00)
[2021-02-28] MEDS ORDERED: HYDROmorphone 1 MG/ML Syringe ONE (14:45)
[2021-02-28 15:14] LABS: ANION GAP 20.3 mEq/L (7-13); CHLORIDE,CL 98 mmol/L (98-107); SODIUM,NA 139 mmol/L (136-145)
[2021-02-28 15:18] LABS: PTT,PARTIAL THROMBOPLSTIN TIME 24.4 SEC (22.0-34.0)
--- NOTE | 2021-02-28 15:39 | CT ---
EXAMINATION: Abdomen Pelvis wo Cont SEX: Male AGE: 60 years CLINICAL HISTORY: 60-year-old hypertensive 250 pound male with left flank/left lower quadrant (LLQ) abdominal pain. History of T12/L1 vertebral body fracture; surgery 6 months ago (several polyps removed). Blood in stools. Scan technique: Volume acquisition of data from the abdomen and pelvis (screening renal stone study) obtained with the patient lying supine on the Siemens multislice scanner [place], [place]. All data archived in the PACS system for storage, reformatting axial/sagittal/coronal planes and study. Interpretation: Abnormal. 1. Asymmetrically larger left kidney with poorly defined margins, mild pyelocaliectasis, and tiny 2.3 mm x 5.0 mm elliptical distal left ureteral calculus. Incidentally demonstrated punctate calcification lower pole calyx, contralateral right kidney. 2. No sign of solid renal cortical mass lesion (unenhanced exam). No intraluminal urinary bladder calcification. 3. Fatty liver. Dense gallbladder with at least one tiny dependent intraluminal gallstone (RUQ). 4. Sigmoid diverticulosis. No abdominal or pelvic mass lesion, inflammatory "dirty" peritoneal fat, signs of mechanical bowel obstruction, ascites or free intraperitoneal air. Stomach, spleen, adrenal glands and pancreas unremarkable. 5. Osteopenia and old compression fractures T12, L1, and particularly L4 vertebral bodies. 6. Normal caliber abdominal aorta. Cardiac silhouette unremarkable. No pericardial or pleural effusions. CONCLUSION: *Obstructing distal left ureteral calculus (stone). Tiny nonobstructing calculus right kidney. Sigmoid diverticulosis.
== END 2021-02-28 18:23 | disposition home or self-care (01) ==
LOC: DL.ED 14:19
DX: N20.2 Calculus of kidney with calculus of ureter (principal); I48.91 Unspecified atrial fibrillation; I25.10 Atherosclerotic heart disease of native coronary artery without angina pectoris; E78.00 Pure hypercholesterolemia, unspecified; I25.2 Old myocardial infarction; E66.9 Obesity, unspecified; Z91.048 Other nonmedicinal substance allergy status; Z79.899 Other long term (current) drug therapy; Z79.82 Long term (current) use of aspirin
CPT/HCPCS: 36415; 74176; 80053; 81001; 82150; 83605; 83690; 85025; 85610; 85730; 96374; 96375; 96376; 99284; 99284-25; J1170; J2405; J7030

== ENCOUNTER 2021-05-30 16:38 | Observation (INO) | payer MEDICARE, OTHER ==
[~2021-05-30 16:38] MED LIST: Norepinephrine 4 MG in Dextrose 5% in Water 246 ML IV SCH
--- NOTE | 2021-05-30 16:49 | EDM.PDOC ---
<Yenny Capone - Last Filed: 05/30/21 18:34> ED HPI GENERAL MEDICAL PROBLEM - General Chief Complaint: Back Pain or Injury Stated Complaint: AMBULANCE Time Seen by Provider: 05/30/21 16:44 Source of Information: Reports: Patient, EMS, Provider (Yuly, DIRECTOR OF CAMPUS RECREATION-C at [facility]), RN, RN Notes Reviewed History Limitations: Reports: No Limitations - History of Present Illness INITIAL COMMENTS - FREE TEXT/NARRATIVE: Liu is a 61 y/o male who presents to the ED via [facility] at the request of his [facility] provider, Yuly DIRECTOR OF CAMPUS RECREATION-C, for complaints of back pain and abdominal pain. The provider states the patient was unresponsive during his initial assessment and was unable to move extremities to commands; did not assess to pain and offered no GCS. Per report, the family stated the patient had felt unwell for several days voicing generalized complaints of chest pain, shortness of breath, abdominal pain, and back pain. The patient has a history paroxysmal AFib, CAD, and CVA. The patient was given Nitro SL by an RN at the [facility] due to the family reporting chest pain. VSS at the [facility] were 100/66 (pre Nitro), HR 78, 95% on RA with RR 16. EKG revealed SR with 1st Degree AVB. En route via EMS bolus was initiated for BP 70/30s. Upon arrival to this facility the patient is alert and oriented with a GCS of 15. He reports pain to his bilateral lower back and RLQ. He does attest to transient chest pain, palpitations, and shortness of breath which he denies at this time. He states he had several bouts of emesis this morning and has been tremulous. The patient denies recent illness, fever, dyspepsia, nausea, dysuria, hematuria, constipation, or diarrhea. He does report difficulty voiding at times. The patient reports his last drink of alcohol was at midnight last night; he smoked marijuana while drinking. The patient reports smoking about 2- 3 cigarettes per day. Back Pain Score (Numeric/FACES): 8 - Related Data Allergies Allergy/AdvReac Type Severity Reaction Status Date / Time iodine Allergy Airway Verified 05/30/21 16:54 Tightness Home Meds: Home Meds Aspirin [Aspirin EC] 81 mg PO DAILY 06/26/20 [History] Calcium Carbonate/Vitamin D3 [Calcium 250+D] 1 each PO DAILY 06/26/20 [History] Multivitamins/Minerals [Vitamins and Minerals] 1 tab PO BEDTIME tablet 06/27/20 [Rx] Acetaminophen 1,000 mg PO Q6HR PRN 09/27/20 [History] Diclofenac Sodium [Voltaren 1% Gel] 1 dose TOP ASDIRECTED PRN 09/27/20 [History] Magnesium Oxide 400 mg PO BID 09/27/20 [History] Metoprolol Succinate [Toprol XL] 25 mg PO DAILY 09/27/20 [History] Thiamine HCl [Vitamin B-1] 100 mg PO DAILY 09/27/20 [History] Apixaban [Eliquis] 5 mg PO BID 05/30/21 [History] Carboxymethylcellulose Sodium [Refresh Liquigel 1%] 2 drop EYEBOTH Q4HR 05/30/21 [History] Pravastatin [Pravachol] 20 mg PO DAILY 05/30/21 [History] Past Medical History HEENT History: Reports: Impaired Vision Cardiovascular History: Reports: Afib, CAD, High Cholesterol, MO Other Cardiovascular History: MO in 2017 Respiratory History: Reports: None Gastrointestinal History: Reports: GI Bleed Genitourinary History: Reports: None Musculoskeletal History: Reports: Back Pain, Chronic Other Musculoskeletal History: wrist Neurological History: Reports: None Psychiatric History: Reports: Addiction Endocrine/Metabolic History: Reports: Obesity/BMI 30+ Hematologic History: Reports: None Immunologic History: Reports: None Oncologic (Cancer) History: Reports: None Dermatologic History: Reports: None - Infectious Disease History Infectious Disease History: Reports: Chicken Pox - Past Surgical History Head Surgeries/Procedures: Reports: None HEENT Surgical History: Reports: None Cardiovascular Surgical History: Reports: None Respiratory Surgical History: Reports: None GI Surgical History: Reports: Hernia, Abdominal Neurological Surgical History: Reports: Other (See Below) Other Neurological Surgeries/Procedures: kyphoplasty L3 and L4 Musculoskeletal Surgical History: Reports: None Social & Family History - Family History Family Medical History: No Pertinent Family History - Caffeine Use Caffeine Use: Reports: None - Living Situation & Occupation Occupation: Unemployed ED ROS GENERAL - Review of Systems Review Of Systems: Comprehensive ROS is negative, except as noted in HPI. ED EXAM,LOWER BACK PAIN/INJURY - Physical Exam Exam: See Below Exam Limited By: No Limitations General Appearance: Alert, No Apparent Distress Eye Exam: Bilateral Eye: EOMI, Normal Inspection, PERRL (3mm) Ears: Normal External Exam, Hearing Grossly Normal Nose: Normal Inspection, Normal Mucosa, No Blood Throat/Mouth: Normal Inspection, Normal Oropharynx, Normal Voice, No Airway Compromise Head: Atraumatic, Normocephalic Neck: Normal Inspection, Supple, Non-Tender, Full Range of Motion Respiratory/Chest: No Respiratory Distress, No Accessory Muscle Use, Chest Non- Tender, Wheezing (Expiratory to bilateral bases). No: Crackles, Rales, Rhonchi, Stridor Cardiovascular: Normal Peripheral Pulses, Regular Rate, Rhythm, No Edema, No Gallop, No JVD, No Murmur, No Rub GI/Abdominal: Normal Bowel Sounds, Soft, No Distention, No Abnormal Bruit, No Mass, Pelvis Stable, Tender (To RLQ and bilateral upper quadrants), Hernia (Umbilical). No: Guarding, Rigid, Rebound (Male) Exam: Deferred Rectal (Males) Exam: Deferred Back Exam: Normal Inspection, Full Range of Motion, CVA Tenderness (L). No: CVA Tenderness (R), Paraspinal Tenderness, Vertebral Tenderness Extremities: Normal Inspection, Normal Range of Motion, Non-Tender, No Pedal Edema, Normal Capillary Refill Neurological: Alert, Normal Mood/Affect, Normal Dorsiflexion, CN II-XII Intact, Normal Plantar Flexion, No Motor/Sensory Deficits, Oriented x 3, Straight Leg Raise (L), Straight Leg Raise (R). No: Saddle Anesthesia Psychiatric: Normal Affect, Normal Mood Skin Exam: Warm, Dry, Normal Color, No Rash, Wound/Incision (1cm x 0.5cm area of erythema to inferior right nipple). No: Cyanosis, Jaundice, Mottled, Pallor #1 Interpretation EKG Date: 05/30/21 Time: 16:44 Rhythm: Other (Sinus bradycardia) Rate (Beats/Min): 57 Wallace: LAD-Left Wallace Deviation P-Wave: Present QRS: RBBB ST-T: Normal QT: Normal AR/PQ Interval: .162 Comparison: Change From Previous EKG (Compared to 06-26-20) EKG Interpretation Comments: SB; RBBB; No evidence of acute myocardial ischemia Course - Radiology Interpretation Free Text/Narrative:: [facility] [place] [facility] Final Radiology Report Call: [phone] assistance Online chat: [email or web address] Name: LIU COOPER Age: 61Years M Date: 05/30/2021 SSN: -- : [id number] Study: CT HEAD WO CONT Requesting Physician: Yenny Capone Images: 163 Addl Studies: Provided Clinical History: Episode of unresponsiveness Contrast: Without Contrast Medium: Contrast Amount: Contrast Method: Page 1 of 2 PROCEDURE INFORMATION: Exam: CT Head Without Contrast Exam date and time: 05/30/2021 6:03 PM Age: 61 years old Clinical indication: Altered mental status/memory loss; Other: Unresponsove; Additional info: Episode of unresponsiveness TECHNIQUE: Imaging protocol: Computed tomography of the head without contrast. Radiation optimization: All CT scans at this facility use at least one of these dose optimization techniques: automated exposure control; mA and/or kV adjustment per patient size (includes targeted exams where dose is matched to clinical indication); or iterative reconstruction. COMPARISON: CT Head wo Cont 11/21/2019 7:27 AM FINDINGS: Brain: Normal. No hemorrhage. Unremarkable white matter. No mass effect. Cerebral ventricles: No ventriculomegaly. Paranasal sinuses: Mild mucosal thickening observed in both maxillary sinuses. No fluid levels. Mastoid air cells: Visualized mastoid air cells are well aerated. Bones/joints: Unremarkable. No acute fracture. Soft tissues: Unremarkable. IMPRESSION: No acute intracranial abnormality. Thank you for allowing us to participate in the care of your patient. Dictated and Authenticated by: Cristopher Landaverde MD 05/30/2021 6:34 PM Central Time ([place] & [place]) Departure - Departure Disposition: Refer to Observation Clinical Impression: Alcohol withdrawal Qualifiers: Complication of substance-induced condition: uncomplicated Qualified Code(s): F10.230 - Alcohol dependence with withdrawal, uncomplicated - Discharge Information Forms: ED Department Discharge <Shea Squires - Last Filed: 05/30/21 21:47> ED HPI GENERAL MEDICAL PROBLEM - History of Present Illness INITIAL COMMENTS - FREE TEXT/NARRATIVE: NIH score = 0 Course - Vital Signs Last Recorded V/S: Last Vital Signs Temp 98.9 F 05/30/21 16:42 Pulse 65 05/30/21 20:25 Resp 20 05/30/21 20:25 BP 117/54 L 05/30/21 20:25 Pulse Ox 94 L 05/30/21 20:25 - Orders/Labs/Meds Orders: Active Orders 24 hr Category Date Time Status Admission Diagnosis [ADT] Stat ADT 05/30/21 21:43 Ordered Admission Status [Patient Status] [ADT] Routine ADT 05/30/21 21:43 Ordered EKG 12 Lead [EKG Documentation Completion] [RC] STAT Care 05/30/21 16:50 Active EKG Documentation Completion [RC] STAT Care 05/30/21 16:52 Active EKG Documentation Completion [RC] STAT Care 05/30/21 20:45 Active DRUG SCREEN URINE BIORAD [URCHEM] Urgent Lab 05/30/21 16:52 Ordered UA RFX VALERIE AND CULT IF INDIC [URIN] Stat Lab 05/30/21 16:52 Ordered Norepinephrine [Levophed] 4 mg Med 05/30/21 16:30 Active Dextrose 5% in Water 246 ml IV TITRATE Medication Orders Norepinephrine Bitartrate 4 mg (/ Dextrose/Water) 250 mls @ 7.5 mls/hr IV TITRATE BRENT; Protocol Labs: Laboratory Tests 05/30/21 05/30/21 05/30/21 Range/Units 16:45 16:45 16:45 WBC 8.0 (5.0-10.0) 10^3/uL RBC 4.54 L (4.6-6.2) 10^6/uL Hgb 14.5 D (14.0-18.0) g/dL Hct 42.1 (40.0-54.0) % MCV 92.7 (80-100) fL MCH 31.9 (27.0-34.0) pg MCHC 34.4 (33.0-35.0) g/dL Plt Count 211 (150-450) 10^3/uL Neut % (Auto) 68.9 (42.2-75.2) % Lymph % (Auto) 23.2 (20.5-50.1) % [place] % (Auto) 7.5 (2-8) % Eos % (Auto) 0.0 L (1.0-3.0) % Baso % (Auto) 0.4 (0.0-1.0) % PT 10.4 (9.0-12.0) SEC INR 1.0 (0.9-1.2) APTT 24.6 (22.0-34.0) SEC Sodium 142 (136-145) mmol/L Potassium 3.1 L (3.5-5.1) mmol/L Chloride 103 (98-107) mmol/L Carbon Dioxide 25 (21-32) mmol/L Anion Gap 17.1 H (7-13) mEq/L BUN 9 (7-18) mg/dL Creatinine 0.83 (0.70-1.30) mg/dL Est Cr Clr Drug Dosing 104.29 mL/min Estimated GFR (MDRD) > 60 BUN/Creatinine Ratio 10.8 (No establ ref range) Glucose 114 H (70-99) mg/dL Lactic Acid (0.4-2.0) mmol/L Calcium 8.4 L (8.5-10.1) mg/dL Magnesium 1.7 L (1.8-2.4) mg/dL Total Bilirubin 0.9 (0.2-1.0) mg/dL AST 38 H (15-37) U/L ALT 41 (16-63) U/L Alkaline Phosphatase 168 H (46-116) U/L Troponin I High Sens 82 H* (<=76) pg/mL C-Reactive Protein 0.9 (0.0-0.9) mg/dL B-Natriuretic Peptide 20 (0-100) pg/ml Total Protein 6.5 (6.4-8.2) g/dL Albumin 3.2 L (3.4-5.0) g/dL Globulin 3.3 Albumin/Globulin Ratio 0.97 Ethyl Alcohol 19 (0) mg/dL 05/30/21 05/30/21 05/30/21 Range/Units 16:45 20:45 20:45 WBC (5.0-10.0) 10^3/uL RBC (4.6-6.2) 10^6/uL Hgb (14.0-18.0) g/dL Hct (40.0-54.0) % MCV (80-100) fL MCH (27.0-34.0) pg MCHC (33.0-35.0) g/dL Plt Count (150-450) 10^3/uL Neut % (Auto) (42.2-75.2) % Lymph % (Auto) (20.5-50.1) % [place] % (Auto) (2-8) % Eos % (Auto) (1.0-3.0) % Baso % (Auto) (0.0-1.0) % PT (9.0-12.0) SEC INR (0.9-1.2) APTT (22.0-34.0) SEC Sodium (136-145) mmol/L Potassium (3.5-5.1) mmol/L Chloride (98-107) mmol/L Carbon Dioxide (21-32) mmol/L Anion Gap (7-13) mEq/L BUN (7-18) mg/dL Creatinine (0.70-1.30) mg/dL Est Cr Clr Drug Dosing mL/min Estimated GFR (MDRD) BUN/Creatinine Ratio (No establ ref range) Glucose (70-99) mg/dL Lactic Acid 2.6 H* 0.8 (0.4-2.0) mmol/L Calcium (8.5-10.1) mg/dL Magnesium (1.8-2.4) mg/dL Total Bilirubin (0.2-1.0) mg/dL AST (15-37) U/L ALT (16-63) U/L Alkaline Phosphatase (46-116) U/L Troponin I High Sens 82 H* (<=76) pg/mL C-Reactive Protein (0.0-0.9) mg/dL B-Natriuretic Peptide (0-100) pg/ml Total Protein (6.4-8.2) g/dL Albumin (3.4-5.0) g/dL Globulin Albumin/Globulin Ratio Ethyl Alcohol (0) mg/dL Meds: Medications Generic Name Dose Route Start Last Admin Trade Name Freq PRN Reason Stop Dose Admin Norepinephrine Bitartrate 4 mg 250 mls @ 7.5 mls/hr 05/30/21 16:30 / Dextrose/Water IV TITRATE BRENT Protocol 2 MCG/MIN Discontinued Medications Generic Name Dose Route Start Last Admin Trade Name Freq PRN Reason Stop Dose Admin Potassium Chloride 20 meq/ 100 mls @ 50 mls/hr 05/30/21 19:12 05/30/21 19:40 Premix IV 05/30/21 21:11 50 mls/hr ONETIME ONE Administration Magnesium Sulfate 2 gm/ Premix 50 mls @ 25 mls/hr 05/30/21 19:13 05/30/21 19:43 IV 05/30/21 21:12 25 mls/hr ONETIME ONE Administration Multivitamins/Minerals 10 ml/ 1,011.2 mls @ 999 mls/hr 05/30/21 19:13 05/30/21 19:41 Folic Acid 1 mg/ Thiamine HCl IV 05/30/21 20:13 999 mls/hr 100 mg/ Lactated Ringer's ONETIME ONE Administration Ketorolac Tromethamine 30 mg 05/30/21 18:34 05/30/21 19:30 Ketorolac 30 Mg/Ml Sdv IVPUSH 05/30/21 18:35 30 mg ONETIME ONE Administration - Radiology Interpretation Free Text/Narrative:: Chest/Abdomen/Pelvis CT wo contrast: PROCEDURE INFORMATION: Exam: CT Chest Without Contrast; Diagnostic Exam date and time: 05/30/2021 6:03 PM Age: 61 years old Clinical indication: Other: Flank pain; Shortness of breath; Additional info: Episode of unresponsiveness; HX kidney stones, transient chest pain, SOB TECHNIQUE: Imaging protocol: Diagnostic computed tomography of the chest without contrast. Radiation optimization: All CT scans at this facility use at least one of these dose optimization techniques: automated exposure control; mA and/or kV adjustment per patient size (includes targeted exams where dose is matched to clinical indication); or iterative reconstruction. COMPARISON: CT Abdomen Pelvis wo Cont 02/28/2021 3:04 PM FINDINGS: Lungs: Mild diffuse emphysematous changes are present. Pleural spaces: No pleural effusion. No pneumothorax. Heart: The heart is not enlarged. Aorta: There is no thoracic aortic aneurysm. Moderate aortic tortuosity.The lungs are clear. Lymph nodes: There is no evidence of lymphadenopathy. Bones/joints: Subtle rib deformities are identified in multiple locations bilaterally likely related to old rib fractures. No convincing acute rib fracture seen.There is moderate endplate sclerosis and osteophyte formation throughout the thoracic segment. Substantial degenerative change sternomanubrial joint. Mild compression deformity superior endplate T12. Soft tissues: There is no soft tissue abnormality seen. IMPRESSION: No acute findings. PROCEDURE INFORMATION: Exam: CT Abdomen And Pelvis Without Contrast Exam date and time: 05/30/2021 6:03 PM Age: 61 years old Clinical indication: Other: Flank pain; Shortness of breath; Additional info: Episode of unresponsiveness; HX kidney stones, transient chest pain, SOB TECHNIQUE: Imaging protocol: Computed tomography of the abdomen and pelvis without contrast. Radiation optimization: All CT scans at this facility use at least one of these dose optimization techniques: automated exposure control; mA and/or kV adjustment per patient size (includes targeted exams where dose is matched to clinical indication); or iterative reconstruction. COMPARISON: CT Abdomen Pelvis wo Cont 02/28/2021 3:04 PM FINDINGS: Liver: There is a diffuse decrease in hepatic parenchymal density, consistent with moderate hepatic steatosis. The liver is otherwise normal. Gallbladder and bile ducts: The gallbladder demonstrates increased intraluminal density suggesting sludge and/or tiny gallstones. A least 1 focal calcific gallstone is questioned, this is in the 1 mm range. There is no evidence of biliary ductal dilation. Pancreas: The pancreas is normal. Spleen: The spleen is normal. Adrenal glands: The adrenal glands are normal. Kidneys and ureters: There is a 2 mm calculus in the lower pole of the right kidney.There is no evidence of hydronephrosis. The ureters are normal. Bilateral mild to moderate perinephric inflammatory stranding. Stomach and bowel: Mild diffuse diverticulosis is present in the colon. There is no evidence of colitis/diverticulitis. Non-specific/nonobstructive intestinal gas pattern. Appendix: A normal appendix is identified. Intraperitoneal space: No free intraperitoneal air. No free intraperitoneal fluid. Vasculature: The vasculature is normal. There is no aortic aneurysm. Lymph nodes: No pelvic adenopathy. There is no adenopathy. Urinary bladder: The bladder is normal. Reproductive: Prostate is unremarkable. Seminal vesicles are unremarkable. Bones/joints: Status post L4 kyphoplasty . Mild compression form deformity superior endplate T12 and possibly L1. There is mild endplate sclerosis and osteophyte formation identified throughout the lumbar segment. Mild diffuse facet disease is present. Soft tissues: There is a fat-containing umbilical hernia. No bowel loops are involved. The defect in the wall measures 2.4 cm, the sac measures 6.7 cm. IMPRESSION: 1. Cholelithiasis 2. Hepatic steatos the is. 3. Fat containing periumbilical hernia as described. 4. Right renal calculus, no hydronephrosis. The distal left ureteral calculus identified on the prior study as cleared. 5. Bilateral mild to moderate perinephric inflammatory stranding. Pattern stable. 6. Status post L4 kyphoplasty. Mild compression deformities T12 and L1 suspect. No change. Thank you for allowing us to participate in the care of your patient. Dictated and Authenticated by: Pravin Godoy MD 05/30/2021 7:18 PM Central Time ([place] & [place]) See rad report - Re-Assessments/Exams Free Text/Narrative Re-Assessment/Exam: 05/30/21 21:46 Discussed patient case with Dr. Masters who agreed to accept the patient for observation admission. Departure - Departure Time of Disposition: 21:46 Condition: Fair - Discharge Information *PRESCRIPTION DRUG MONITORING PROGRAM REVIEWED*: No *COPY OF PRESCRIPTION DRUG MONITORING REPORT IN PATIENT COURTNEY: No Sepsis Event Note (ED) - Focused Exam Vital Signs: Vital Signs Temp Pulse Resp BP Pulse Ox 05/30/21 20:25 65 20 117/54 L 94 L 05/30/21 16:42 98.9 F 67 18 109/67 100 - My Orders Last 24 Hours: My Active Orders 05/30/21 20:45 EKG Documentation Completion [RC] STAT 05/30/21 21:43 Admission Diagnosis [ADT] Stat Admission Status [Patient Status] [ADT] Routine - Assessment/Plan Last 24 Hours: My Active Orders 05/30/21 20:45 EKG Documentation Completion [RC] STAT 05/30/21 21:43 Admission Diagnosis [ADT] Stat Admission Status [Patient Status] [ADT] Routine CIWAA - CIWAA CIWAA Nausea And Vomitin - Intermittent Nausea with Dry Heaves CIWAA Tremor: 2 CIWAA Paroxysmal Sweats: 2 CIWAA Anxiety: 2 CIWAA Agitation: 0 - Normal Activity CIWAA Tactile Disturbances: 1 - Very Mild Itching, Pins and [place], Burning or Numbness CIWAA Auditory Disturbances: 0 - Not Present CIWAA Visual Disturbances: 0 - Not Present CIWAA Headache, Fullness in Head: 1 - Very Mild CIWAA Orientation And Clouding Of Sensorium: 0 - Oriented and Can do Serial Additions CIWAA Scale Score: 12
[2021-05-30 17:24] LABS: PTT,PARTIAL THROMBOPLSTIN TIME 24.6 SEC (22.0-34.0)
[2021-05-30 17:28] LABS: ANION GAP 17.1 mEq/L (7-13); CHLORIDE,CL 103 mmol/L (98-107); SODIUM,NA 142 mmol/L (136-145)
[2021-05-30] MEDS ORDERED: Ketorolac 30 MG/ML SDV IVPUSH ONE (18:34)
--- NOTE | 2021-05-30 18:35 | CT ---
PROCEDURE INFORMATION: Exam: CT Head Without Contrast Exam date and time: 05/30/2021 6:03 PM Age: 61 years old Clinical indication: Altered mental status/memory loss; Other: Unresponsove; Additional info: Episode of unresponsiveness TECHNIQUE: Imaging protocol: Computed tomography of the head without contrast. Radiation optimization: All CT scans at this facility use at least one of these dose optimization techniques: automated exposure control; mA and/or kV adjustment per patient size (includes targeted exams where dose is matched to clinical indication); or iterative reconstruction. COMPARISON: CT Head wo Cont 11/21/2019 7:27 AM FINDINGS: Brain: Normal. No hemorrhage. Unremarkable white matter. No mass effect. Cerebral ventricles: No ventriculomegaly. Paranasal sinuses: Mild mucosal thickening observed in both maxillary sinuses. No fluid levels. Mastoid air cells: Visualized mastoid air cells are well aerated. Bones/joints: Unremarkable. No acute fracture. Soft tissues: Unremarkable. IMPRESSION: No acute intracranial abnormality.
[2021-05-30] MEDS ORDERED: Potassium Chloride 20 MEQ in Premix Bag 1 BAG IV ONE (19:12)
[2021-05-30] MEDS ORDERED: Magnesium Sulfate/Water 2 GM in Premix Bag 1 BAG IV ONE ×2 (19:13→22:30)
[2021-05-30] MEDS ORDERED: MVI, Adult with Vitamin K 10 ML, Folic Acid 1 MG, Thiamine 100 MG in Lactated Ringers 1... IV ONE ×4 (19:13)
--- NOTE | 2021-05-30 19:18 | CT ---
PROCEDURE INFORMATION: Exam: CT Chest Without Contrast; Diagnostic Exam date and time: 05/30/2021 6:03 PM Age: 61 years old Clinical indication: Other: Flank pain; Shortness of breath; Additional info: Episode of unresponsiveness; HX kidney stones, transient chest pain, SOB TECHNIQUE: Imaging protocol: Diagnostic computed tomography of the chest without contrast. Radiation optimization: All CT scans at this facility use at least one of these dose optimization techniques: automated exposure control; mA and/or kV adjustment per patient size (includes targeted exams where dose is matched to clinical indication); or iterative reconstruction. COMPARISON: CT Abdomen Pelvis wo Cont 02/28/2021 3:04 PM FINDINGS: Lungs: Mild diffuse emphysematous changes are present. Pleural spaces: No pleural effusion. No pneumothorax. Heart: The heart is not enlarged. Aorta: There is no thoracic aortic aneurysm. Moderate aortic tortuosity.The lungs are clear. Lymph nodes: There is no evidence of lymphadenopathy. Bones/joints: Subtle rib deformities are identified in multiple locations bilaterally likely related to old rib fractures. No convincing acute rib fracture seen.There is moderate endplate sclerosis and osteophyte formation throughout the thoracic segment. Substantial degenerative change sternomanubrial joint. Mild compression deformity superior endplate T12. Soft tissues: There is no soft tissue abnormality seen. IMPRESSION: No acute findings. PROCEDURE INFORMATION: Exam: CT Abdomen And Pelvis Without Contrast Exam date and time: 05/30/2021 6:03 PM Age: 61 years old Clinical indication: Other: Flank pain; Shortness of breath; Additional info: Episode of unresponsiveness; HX kidney stones, transient chest pain, SOB TECHNIQUE: Imaging protocol: Computed tomography of the abdomen and pelvis without contrast. Radiation optimization: All CT scans at this facility use at least one of these dose optimization techniques: automated exposure control; mA and/or kV adjustment per patient size (includes targeted exams where dose is matched to clinical indication); or iterative reconstruction. COMPARISON: CT Abdomen Pelvis wo Cont 02/28/2021 3:04 PM FINDINGS: Liver: There is a diffuse decrease in hepatic parenchymal density, consistent with moderate hepatic steatosis. The liver is otherwise normal. Gallbladder and bile ducts: The gallbladder demonstrates increased intraluminal density suggesting sludge and/or tiny gallstones. A least 1 focal calcific gallstone is questioned, this is in the 1 mm range. There is no evidence of biliary ductal dilation. Pancreas: The pancreas is normal. Spleen: The spleen is normal. Adrenal glands: The adrenal glands are normal. Kidneys and ureters: There is a 2 mm calculus in the lower pole of the right kidney.There is no evidence of hydronephrosis. The ureters are normal. Bilateral mild to moderate perinephric inflammatory stranding. Stomach and bowel: Mild diffuse diverticulosis is present in the colon. There is no evidence of colitis/diverticulitis. Non-specific/nonobstructive intestinal gas pattern. Appendix: A normal appendix is identified. Intraperitoneal space: No free intraperitoneal air. No free intraperitoneal fluid. Vasculature: The vasculature is normal. There is no aortic aneurysm. Lymph nodes: No pelvic adenopathy. There is no adenopathy. Urinary bladder: The bladder is normal. Reproductive: Prostate is unremarkable. Seminal vesicles are unremarkable. Bones/joints: Status post L4 kyphoplasty . Mild compression form deformity superior endplate T12 and possibly L1. There is mild endplate sclerosis and osteophyte formation identified throughout the lumbar segment. Mild diffuse facet disease is present. Soft tissues: There is a fat-containing umbilical hernia. No bowel loops are involved. The defect in the wall measures 2.4 cm, the sac measures 6.7 cm. IMPRESSION: 1. Cholelithiasis 2. Hepatic steatos the is. 3. Fat containing periumbilical hernia as described. 4. Right renal calculus, no hydronephrosis. The distal left ureteral calculus identified on the prior study as cleared. 5. Bilateral mild to moderate perinephric inflammatory stranding. Pattern stable. 6. Status post L4 kyphoplasty. Mild compression deformities T12 and L1 suspect. No change.
[2021-05-30] MEDS ORDERED: Sodium Chloride 0.9% 10 ML Syringe FLUSH PRN (22:28)
[2021-05-30] MEDS ORDERED: Acetaminophen 325 MG Tab PO PRN (22:28)
[2021-05-30] MEDS ORDERED: Ondansetron 4 MG/2 ML SDV IVPUSH PRN (22:28)
[2021-05-30] MEDS ORDERED: Sodium Chloride 0.9% 1,000 ML IV SCH (22:30)
[2021-05-30] MEDS ORDERED: LORazepam 2 MG/ML SDV IV PRN (22:35)
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
[2021-05-30] MEDS ORDERED: Non-Formulary Medication 1 Each (Diclofenac Sodium [Voltaren 1% Gel] 100 GM Tube) TOP PRN (22:45)
[2021-05-30] MEDS: Potassium Chloride 10 MEQ Tab.ER PO SCH (23:24)
[2021-05-30] MEDS: Metoprolol Tartrate 25 MG Tab PO SCH (23:25)
[2021-05-30] MEDS: Morphine 2 MG/ML SYRINGE IVPUSH PRN (23:54)
[2021-05-31] MEDS: Potassium Chloride 10 MEQ Tab.ER PO SCH (01:26)
[2021-05-31] MEDS: Carboxymethylcellulose Sodium 1% Ophth Gel 0.4 ML UD EYEBOTH SCH ×4 (02:55→14:28)
[2021-05-31] MEDS ORDERED: Isosorbide Mononitrate 60 MG Tab.ER PO SCH (06:00)
[2021-05-31] MEDS: Morphine 2 MG/ML SYRINGE IVPUSH PRN ×2 (06:03→10:16)
[2021-05-31 06:31] LABS: ANION GAP 11.5 mEq/L (7-13); CHLORIDE,CL 107 mmol/L (98-107); SODIUM,NA 142 mmol/L (136-145)
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
[2021-05-31] MEDS ORDERED: Aspirin 81 MG Tab.EC PO SCH (08:00)
[2021-05-31] MEDS: Metoprolol Tartrate 25 MG Tab PO SCH (09:57)
--- NOTE | 2021-05-31 15:21 | US ---
EXAMINATION: Carotid Comp SEX: Male AGE: 61 years CLINICAL HISTORY: 61-year-old obese hypertensive male smoker with clinical transient ischemic attack (TIA) and history of previous "stroke". INTERPRETATION: Negative exam. 1. Normal smooth intimal surface both common and internal carotid arteries. No atheromatous plaque. 2. Normal antegrade vertebral artery flow present bilaterally. 3. Peak systolic flow velocities right common carotid artery 87.7 cm/s; right internal carotid artery 70.7 cm/s; and right external carotid artery 109 cm/s. IC/CC ratio on the right 0.81. 4. Peak systolic flow velocity contralateral left common carotid artery 116 cm/s; left internal carotid artery 88.3 cm/s; and left external carotid artery 140 cm/s. IC/CC ratio 0.81. CONCLUSION: No abnormal atheromatous plaque buildup or elevated peak systolic flow velocities indicating carotid vascular disease or significant (surgical) stenosis common or internal carotid arteries. Normal vertebral artery flow.
--- NOTE | 2021-05-31 15:43 | PCM.DCSUM1 ---
Discharge Summary - Hospital Course Free Text/Narrative:: START OF DOCTOR EMAM[facility] DISCHARGE SUMMARY Date of Admission: May 30, 2021 Date of Discharge: 3:40 PM on May 31, 2021 Primary Diagnosis: Query TIA Secondary diagnosis: Query syncope for which all potential causes have been ruled out with the excep tion of echocardiogram results pending at time of discharge. If the patient did have a syncopal episode the only possible culprits at this time may have been an opiate overdose as his urine drug screen is positive for opiates and/or bradycardia due to beta-jon which he takes at home Chest pain, query ACS. troponin is minimally elevated but remained flat Hypokalemia, status post treatment Hypomagnesemia, status post treatment Nephrolithiasis, asymptomatic Paroxysmal atrial fibrillation Hepatic steatosis Query alcohol use COPD Grade 1 diastolic dysfunction Coronary artery disease, status post VT Hyperlipidemia Hypertension Obesity Smoker Cholelithiasis, asymptomatic Diverticulosis History of CVA Osteopenia Arthritis History of seizure Degenerative disc disease Marijuana abuse Consultations: None Condition on Discharge: Fair Disposition: The patient will be advised to follow-up with his primary care physician 5 to 7 days post discharge or with a provider The patient is advised to follow-up with cardiology 7 to 10 days post discharge given that his troponins were minimally elevated but flat and he may warrant cardiac stress testing, especially given all of his risk factors Discharge Medications: Thiamine 100 mg p.o. daily Pravastatin 20 mg p.o. daily Multivitamin 1 tab p.o. daily Magnesium oxide 400 mg p.o. daily Aspirin 81 mg p.o. daily Eliquis 5 mg p.o. twice daily Imdur 60 mg p.o. daily END OF DOCTOR EMAMIS DISCHARGE SUMMARY - Discharge Data Discharge Date: 05/31/21 Discharge Disposition: Home, Self-Care 01 Condition: Fair - Referral to Home Health Primary Care Physician: PCP None - Patient Summary/Data Consults: Consultations 05/30/21 22:28 OT Evaluation and Treatment [CONS] Routine PT Evaluation and Treatment [CONS] Routine - Patient Instructions Diet: Heart Healthy Diet, Low Sodium Activity: As Tolerated - Discharge Plan *PRESCRIPTION DRUG MONITORING PROGRAM REVIEWED*: No *COPY OF PRESCRIPTION DRUG MONITORING REPORT IN PATIENT COURTNEY: No Prescriptions/Med Rec: Isosorbide Mononitrate [Imdur] 60 mg PO ACBREAKFAST 30 Days #30 tab.er Home Medications: Home Meds Aspirin [Aspirin EC] 81 mg PO DAILY 06/26/20 [History] Multivitamins/Minerals [Vitamins and Minerals] 1 tab PO BEDTIME tablet 06/27/20 [Rx] Magnesium Oxide 400 mg PO DAILY 09/27/20 [History] Thiamine HCl [Vitamin B-1] 100 mg PO DAILY 09/27/20 [History] Apixaban [Eliquis] 5 mg PO BID 05/30/21 [History] Carboxymethylcellulose Sodium [Refresh Liquigel 1%] 2 drop EYEBOTH QID 05/30/21 [History] Pravastatin [Pravachol] 20 mg PO DAILY 05/30/21 [History] Isosorbide Mononitrate [Imdur] 60 mg PO ACBREAKFAST 30 Days #30 tab.er 05/31/21 [Rx] - Discharge Summary/Plan Comment DC Time >30 min.: Yes - General Info Functional Status: Reports: Pain Controlled - Review of Systems General: Reports: No Symptoms HEENT: Reports: No Symptoms Pulmonary: Reports: No Symptoms Cardiovascular: Reports: No Symptoms Gastrointestinal: Reports: No Symptoms Genitourinary: Reports: No Symptoms Musculoskeletal: Reports: No Symptoms Skin: Reports: No Symptoms Neurological: Reports: No Symptoms Psychiatric: Reports: No Symptoms - Patient Data Vitals - Most Recent: Last Vital Signs Temp 97.7 F 05/31/21 12:00 Pulse 53 L 05/31/21 12:00 Resp 18 05/31/21 12:00 BP 109/66 05/31/21 12:00 Pulse Ox 98 05/31/21 12:00 Weight - Most Recent: 242 lb I&O - Last 24 hours: Intake & Output 05/31/21 05/31/21 05/31/21 06:59 14:59 22:59 Intake Total 400 340 Output Total 0 325 Balance 400 15 Lab Results - Last 24 hrs: Laboratory Results - last 24 hr 05/30/21 05/30/21 05/30/21 Range/Units 16:45 16:45 16:45 WBC 8.0 (5.0-10.0) 10^3/uL RBC 4.54 L (4.6-6.2) 10^6/uL Hgb 14.5 D (14.0-18.0) g/dL Hct 42.1 (40.0-54.0) % MCV 92.7 (80-100) fL MCH 31.9 (27.0-34.0) pg MCHC 34.4 (33.0-35.0) g/dL Plt Count 211 (150-450) 10^3/uL Neut % (Auto) 68.9 (42.2-75.2) % Lymph % (Auto) 23.2 (20.5-50.1) % Fisher % (Auto) 7.5 (2-8) % Eos % (Auto) 0.0 L (1.0-3.0) % Baso % (Auto) 0.4 (0.0-1.0) % PT 10.4 (9.0-12.0) SEC INR 1.0 (0.9-1.2) APTT 24.6 (22.0-34.0) SEC Sodium 142 (136-145) mmol/L Potassium 3.1 L (3.5-5.1) mmol/L Chloride 103 (98-107) mmol/L Carbon Dioxide 25 (21-32) mmol/L Anion Gap 17.1 H (7-13) mEq/L BUN 9 (7-18) mg/dL Creatinine 0.83 (0.70-1.30) mg/dL Est Cr Clr Drug Dosing 104.29 mL/min Estimated GFR (MDRD) > 60 BUN/Creatinine Ratio 10.8 (No establ ref range) Glucose 114 H (70-99) mg/dL Lactic Acid (0.4-2.0) mmol/L Calcium 8.4 L (8.5-10.1) mg/dL Magnesium 1.7 L (1.8-2.4) mg/dL Total Bilirubin 0.9 (0.2-1.0) mg/dL AST 38 H (15-37) U/L ALT 41 (16-63) U/L Alkaline Phosphatase 168 H (46-116) U/L Troponin I High Sens 82 H* (<=76) pg/mL C-Reactive Protein 0.9 (0.0-0.9) mg/dL B-Natriuretic Peptide 20 (0-100) pg/ml Total Protein 6.5 (6.4-8.2) g/dL Albumin 3.2 L (3.4-5.0) g/dL Globulin 3.3 Albumin/Globulin Ratio 0.97 Triglycerides (0-149) mg/dL Cholesterol (0-199) mg/dL LDL Cholesterol, Calc (0-100) mg/dL HDL Cholesterol (40-59) mg/dL Vitamin B12 (193-986) pg/mL Folate (8.6-58.9) ng/mL Free T4 (0.76-1.46) ng/dL TSH, Ultra Sensitive (0.36-3.74) uIU/mL Urine Color (YELLOW) Urine Appearance (CLEAR) Urine pH (5.0-9.0) Ur Specific Geronimo (1.005-1.030) Urine Protein (NEGATIVE) Urine Glucose (UA) (NEGATIVE) Urine Ketones (NEGATIVE) Urine Occult Blood (NEGATIVE) Urine Nitrite (NEGATIVE) Urine Bilirubin (NEGATIVE) Urine Urobilinogen (0.2-1.0) mg/dL Ur Leukocyte Esterase (NEGATIVE) Urine RBC /HPF Urine WBC (0-5/HPF) /HPF Ur Epithelial Cells (NOT SEEN) /HPF Urine Bacteria (0-FEW/HPF) /HPF Urine Mucus (NOT SEEN) /LPF Urine Opiates Screen (NEGATIVE) Ur Oxycodone Screen (NEGATIVE) Urine Methadone Screen (NEGATIVE) Ur Barbiturates Screen (NEGATIVE) U Tricyclic Antidepress (NEGATIVE) Ur Phencyclidine Scrn (NEGATIVE) Ur Amphetamine Screen (NEGATIVE) U Methamphetamines Scrn (NEGATIVE) Urine MDMA Screen (NEGATIVE) U Benzodiazepines Scrn (NEGATIVE) Urine Cocaine Screen (NEGATIVE) U Marijuana (THC) Screen (NEGATIVE) Ethyl Alcohol 19 (0) mg/dL SARS-CoV-2 RNA (ESTER) (NEGATIVE) 05/30/21 05/30/21 05/30/21 Range/Units 16:45 20:45 20:45 WBC (5.0-10.0) 10^3/uL RBC (4.6-6.2) 10^6/uL Hgb (14.0-18.0) g/dL Hct (40.0-54.0) % MCV (80-100) fL MCH (27.0-34.0) pg MCHC (33.0-35.0) g/dL Plt Count (150-450) 10^3/uL Neut % (Auto) (42.2-75.2) % Lymph % (Auto) (20.5-50.1) % Fisher % (Auto) (2-8) % Eos % (Auto) (1.0-3.0) % Baso % (Auto) (0.0-1.0) % PT (9.0-12.0) SEC INR (0.9-1.2) APTT (22.0-34.0) SEC Sodium (136-145) mmol/L Potassium (3.5-5.1) mmol/L Chloride (98-107) mmol/L Carbon Dioxide (21-32) mmol/L Anion Gap (7-13) mEq/L BUN (7-18) mg/dL Creatinine (0.70-1.30) mg/dL Est Cr Clr Drug Dosing mL/min Estimated GFR (MDRD) BUN/Creatinine Ratio (No establ ref range) Glucose (70-99) mg/dL Lactic Acid 2.6 H* 0.8 (0.4-2.0) mmol/L Calcium (8.5-10.1) mg/dL Magnesium (1.8-2.4) mg/dL Total Bilirubin (0.2-1.0) mg/dL AST (15-37) U/L ALT (16-63) U/L Alkaline Phosphatase (46-116) U/L Troponin I High Sens 82 H* (<=76) pg/mL C-Reactive Protein (0.0-0.9) mg/dL B-Natriuretic Peptide (0-100) pg/ml Total Protein (6.4-8.2) g/dL Albumin (3.4-5.0) g/dL Globulin Albumin/Globulin Ratio Triglycerides (0-149) mg/dL Cholesterol (0-199) mg/dL LDL Cholesterol, Calc (0-100) mg/dL HDL Cholesterol (40-59) mg/dL Vitamin B12 (193-986) pg/mL Folate (8.6-58.9) ng/mL Free T4 (0.76-1.46) ng/dL TSH, Ultra Sensitive (0.36-3.74) uIU/mL Urine Color (YELLOW) Urine Appearance (CLEAR) Urine pH (5.0-9.0) Ur Specific Geronimo (1.005-1.030) Urine Protein (NEGATIVE) Urine Glucose (UA) (NEGATIVE) Urine Ketones (NEGATIVE) Urine Occult Blood (NEGATIVE) Urine Nitrite (NEGATIVE) Urine Bilirubin (NEGATIVE) Urine Urobilinogen (0.2-1.0) mg/dL Ur Leukocyte Esterase (NEGATIVE) Urine RBC /HPF Urine WBC (0-5/HPF) /HPF Ur Epithelial Cells (NOT SEEN) /HPF Urine Bacteria (0-FEW/HPF) /HPF Urine Mucus (NOT SEEN) /LPF Urine Opiates Screen (NEGATIVE) Ur Oxycodone Screen (NEGATIVE) Urine Methadone Screen (NEGATIVE) Ur Barbiturates Screen (NEGATIVE) U Tricyclic Antidepress (NEGATIVE) Ur Phencyclidine Scrn (NEGATIVE) Ur Amphetamine Screen (NEGATIVE) U Methamphetamines Scrn (NEGATIVE) Urine MDMA Screen (NEGATIVE) U Benzodiazepines Scrn (NEGATIVE) Urine Cocaine Screen (NEGATIVE) U Marijuana (THC) Screen (NEGATIVE) Ethyl Alcohol (0) mg/dL SARS-CoV-2 RNA (ESTRE) (NEGATIVE) 05/30/21 05/30/21 05/30/21 Range/Units 20:45 21:56 23:55 WBC (5.0-10.0) 10^3/uL RBC (4.6-6.2) 10^6/uL Hgb (14.0-18.0) g/dL Hct (40.0-54.0) % MCV (80-100) fL MCH (27.0-34.0) pg MCHC (33.0-35.0) g/dL Plt Count (150-450) 10^3/uL Neut % (Auto) (42.2-75.2) % Lymph % (Auto) (20.5-50.1) % Fisher % (Auto) (2-8) % Eos % (Auto) (1.0-3.0) % Baso % (Auto) (0.0-1.0) % PT (9.0-12.0) SEC INR (0.9-1.2) APTT (22.0-34.0) SEC Sodium (136-145) mmol/L Potassium (3.5-5.1) mmol/L Chloride (98-107) mmol/L Carbon Dioxide (21-32) mmol/L Anion Gap (7-13) mEq/L BUN (7-18) mg/dL Creatinine (0.70-1.30) mg/dL Est Cr Clr Drug Dosing mL/min Estimated GFR (MDRD) BUN/Creatinine Ratio (No establ ref range) Glucose (70-99) mg/dL Lactic Acid (0.4-2.0) mmol/L Calcium (8.5-10.1) mg/dL Magnesium (1.8-2.4) mg/dL Total Bilirubin (0.2-1.0) mg/dL AST (15-37) U/L ALT (16-63) U/L Alkaline Phosphatase (46-116) U/L Troponin I High Sens 83 H* (<=76) pg/mL C-Reactive Protein (0.0-0.9) mg/dL B-Natriuretic Peptide (0-100) pg/ml Total Protein (6.4-8.2) g/dL Albumin (3.4-5.0) g/dL Globulin Albumin/Globulin Ratio Triglycerides (0-149) mg/dL Cholesterol (0-199) mg/dL LDL Cholesterol, Calc (0-100) mg/dL HDL Cholesterol (40-59) mg/dL Vitamin B12 1095 H (193-986) pg/mL Folate > 20.0 (8.6-58.9) ng/mL Free T4 1.27 (0.76-1.46) ng/dL TSH, Ultra Sensitive 1.48 (0.36-3.74) uIU/mL Urine Color (YELLOW) Urine Appearance (CLEAR) Urine pH (5.0-9.0) Ur Specific Geronimo (1.005-1.030) Urine Protein (NEGATIVE) Urine Glucose (UA) (NEGATIVE) Urine Ketones (NEGATIVE) Urine Occult Blood (NEGATIVE) Urine Nitrite (NEGATIVE) Urine Bilirubin (NEGATIVE) Urine Urobilinogen (0.2-1.0) mg/dL Ur Leukocyte Esterase (NEGATIVE) Urine RBC /HPF Urine WBC (0-5/HPF) /HPF Ur Epithelial Cells (NOT SEEN) /HPF Urine Bacteria (0-FEW/HPF) /HPF Urine Mucus (NOT SEEN) /LPF Urine Opiates Screen (NEGATIVE) Ur Oxycodone Screen (NEGATIVE) Urine Methadone Screen (NEGATIVE) Ur Barbiturates Screen (NEGATIVE) U Tricyclic Antidepress (NEGATIVE) Ur Phencyclidine Scrn (NEGATIVE) Ur Amphetamine Screen (NEGATIVE) U Methamphetamines Scrn (NEGATIVE) Urine MDMA Screen (NEGATIVE) U Benzodiazepines Scrn (NEGATIVE) Urine Cocaine Screen (NEGATIVE) U Marijuana (THC) Screen (NEGATIVE) Ethyl Alcohol (0) mg/dL SARS-CoV-2 RNA (ESTER) Negative (NEGATIVE) 05/31/21 05/31/21 05/31/21 Range/Units 05:55 05:55 08:07 WBC (5.0-10.0) 10^3/uL RBC (4.6-6.2) 10^6/uL Hgb (14.0-18.0) g/dL Hct (40.0-54.0) % MCV (80-100) fL MCH (27.0-34.0) pg MCHC (33.0-35.0) g/dL Plt Count (150-450) 10^3/uL Neut % (Auto) (42.2-75.2) % Lymph % (Auto) (20.5-50.1) % Fisher % (Auto) (2-8) % Eos % (Auto) (1.0-3.0) % Baso % (Auto) (0.0-1.0) % PT (9.0-12.0) SEC INR (0.9-1.2) APTT (22.0-34.0) SEC Sodium 142 (136-145) mmol/L Potassium 3.5 (3.5-5.1) mmol/L Chloride 107 (98-107) mmol/L Carbon Dioxide 27 (21-32) mmol/L Anion Gap 11.5 (7-13) mEq/L BUN 11 (7-18) mg/dL Creatinine 0.95 (0.70-1.30) mg/dL Est Cr Clr Drug Dosing 91.11 mL/min Estimated GFR (MDRD) > 60 BUN/Creatinine Ratio 11.6 (No establ ref range) Glucose 95 (70-99) mg/dL Lactic Acid (0.4-2.0) mmol/L Calcium 7.9 L (8.5-10.1) mg/dL Magnesium 2.7 H (1.8-2.4) mg/dL Total Bilirubin 1.4 H (0.2-1.0) mg/dL AST 31 (15-37) U/L ALT 34 (16-63) U/L Alkaline Phosphatase 149 H (46-116) U/L Troponin I High Sens 84 H* (<=76) pg/mL C-Reactive Protein (0.0-0.9) mg/dL B-Natriuretic Peptide (0-100) pg/ml Total Protein 5.7 L (6.4-8.2) g/dL Albumin 2.9 L (3.4-5.0) g/dL Globulin 2.8 Albumin/Globulin Ratio 1.04 Triglycerides 67 (0-149) mg/dL Cholesterol 112 (0-199) mg/dL LDL Cholesterol, Calc 37 (0-100) mg/dL HDL Cholesterol 62 H (40-59) mg/dL Vitamin B12 (193-986) pg/mL Folate (8.6-58.9) ng/mL Free T4 (0.76-1.46) ng/dL TSH, Ultra Sensitive (0.36-3.74) uIU/mL Urine Color Kallie (YELLOW) Urine Appearance Clear (CLEAR) Urine pH 6.5 (5.0-9.0) Ur Specific Geronimo >= 1.030 (1.005-1.030) Urine Protein 30 H (NEGATIVE) Urine Glucose (UA) 100 H (NEGATIVE) Urine Ketones Negative (NEGATIVE) Urine Occult Blood Negative (NEGATIVE) Urine Nitrite Negative (NEGATIVE) Urine Bilirubin Small H (NEGATIVE) Urine Urobilinogen 0.2 (0.2-1.0) mg/dL Ur Leukocyte Esterase Negative (NEGATIVE) Urine RBC Not seen /HPF Urine WBC 0-5 (0-5/HPF) /HPF Ur Epithelial Cells Few (NOT SEEN) /HPF Urine Bacteria Not seen (0-FEW/HPF) /HPF Urine Mucus Many H (NOT SEEN) /LPF Urine Opiates Screen (NEGATIVE) Ur Oxycodone Screen (NEGATIVE) Urine Methadone Screen (NEGATIVE) Ur Barbiturates Screen (NEGATIVE) U Tricyclic Antidepress (NEGATIVE) Ur Phencyclidine Scrn (NEGATIVE) Ur Amphetamine Screen (NEGATIVE) U Methamphetamines Scrn (NEGATIVE) Urine MDMA Screen (NEGATIVE) U Benzodiazepines Scrn (NEGATIVE) Urine Cocaine Screen (NEGATIVE) U Marijuana (THC) Screen (NEGATIVE) Ethyl Alcohol (0) mg/dL SARS-CoV-2 RNA (ESTER) (NEGATIVE) 05/31/21 Range/Units 08:07 WBC (5.0-10.0) 10^3/uL RBC (4.6-6.2) 10^6/uL Hgb (14.0-18.0) g/dL Hct (40.0-54.0) % MCV (80-100) fL MCH (27.0-34.0) pg MCHC (33.0-35.0) g/dL Plt Count (150-450) 10^3/uL Neut % (Auto) (42.2-75.2) % Lymph % (Auto) (20.5-50.1) % Fisher % (Auto) (2-8) % Eos % (Auto) (1.0-3.0) % Baso % (Auto) (0.0-1.0) % PT (9.0-12.0) SEC INR (0.9-1.2) APTT (22.0-34.0) SEC Sodium (136-145) mmol/L Potassium (3.5-5.1) mmol/L Chloride (98-107) mmol/L Carbon Dioxide (21-32) mmol/L Anion Gap (7-13) mEq/L BUN (7-18) mg/dL Creatinine (0.70-1.30) mg/dL Est Cr Clr Drug Dosing mL/min Estimated GFR (MDRD) BUN/Creatinine Ratio (No establ ref range) Glucose (70-99) mg/dL Lactic Acid (0.4-2.0) mmol/L Calcium (8.5-10.1) mg/dL Magnesium (1.8-2.4) mg/dL Total Bilirubin (0.2-1.0) mg/dL AST (15-37) U/L ALT (16-63) U/L Alkaline Phosphatase (46-116) U/L Troponin I High Sens (<=76) pg/mL C-Reactive Protein (0.0-0.9) mg/dL B-Natriuretic Peptide (0-100) pg/ml Total Protein (6.4-8.2) g/dL Albumin (3.4-5.0) g/dL Globulin Albumin/Globulin Ratio Triglycerides (0-149) mg/dL Cholesterol (0-199) mg/dL LDL Cholesterol, Calc (0-100) mg/dL HDL Cholesterol (40-59) mg/dL Vitamin B12 (193-986) pg/mL Folate (8.6-58.9) ng/mL Free T4 (0.76-1.46) ng/dL TSH, Ultra Sensitive (0.36-3.74) uIU/mL Urine Color (YELLOW) Urine Appearance (CLEAR) Urine pH (5.0-9.0) Ur Specific Geronimo (1.005-1.030) Urine Protein (NEGATIVE) Urine Glucose (UA) (NEGATIVE) Urine Ketones (NEGATIVE) Urine Occult Blood (NEGATIVE) Urine Nitrite (NEGATIVE) Urine Bilirubin (NEGATIVE) Urine Urobilinogen (0.2-1.0) mg/dL Ur Leukocyte Esterase (NEGATIVE) Urine RBC /HPF Urine WBC (0-5/HPF) /HPF Ur Epithelial Cells (NOT SEEN) /HPF Urine Bacteria (0-FEW/HPF) /HPF Urine Mucus (NOT SEEN) /LPF Urine Opiates Screen Positive H (NEGATIVE) Ur Oxycodone Screen Negative (NEGATIVE) Urine Methadone Screen Negative (NEGATIVE) Ur Barbiturates Screen Negative (NEGATIVE) U Tricyclic Antidepress Negative (NEGATIVE) Ur Phencyclidine Scrn Negative (NEGATIVE) Ur Amphetamine Screen Negative (NEGATIVE) U Methamphetamines Scrn Negative (NEGATIVE) Urine MDMA Screen Negative (NEGATIVE) U Benzodiazepines Scrn Negative (NEGATIVE) Urine Cocaine Screen Negative (NEGATIVE) U Marijuana (THC) Screen Positive H (NEGATIVE) Ethyl Alcohol (0) mg/dL SARS-CoV-2 RNA (ESTER) (NEGATIVE) Med Orders - Current: Current Medications Acetaminophen (Acetaminophen 325 Mg Tab) 650 mg PO Q4H PRN PRN Reason: Pain (Mild 1-3)/fever Artificial Tears (Carboxymethylcellulose Sodium 1% Ophth Gel 0.4 Ml Ud) 2 each EYEBOTH Q4HR [facility] Last Admin: 05/31/21 14:28 Dose: 1 each Documented by: Aspirin (Aspirin 81 Mg Tab.Ec) 81 mg PO WITHBREAKFAST [facility] Last Admin: 05/31/21 09:57 Dose: 81 mg Documented by: Atorvastatin Calcium (Atorvastatin 20 Mg Tab) 40 mg PO BEDTIME [facility] Isosorbide Mononitrate (Isosorbide Mononitrate 60 Mg Tab.Er) 60 mg PO ACBREAKFAST [facility] Last Admin: 05/31/21 06:02 Dose: 60 mg Documented by: Lorazepam (Lorazepam 2 Mg/Ml Sdv) 0 mg IV TITRATE PRN; Protocol PRN Reason: alcohol withdrawal Metoprolol Tartrate (Metoprolol Tartrate 25 Mg Tab) 25 mg PO Q12H [facility] Last Admin: 05/31/21 09:57 Dose: 25 mg Documented by: Morphine Sulfate (Morphine 2 Mg/Ml Syringe) 1 mg IVPUSH Q4H PRN PRN Reason: Pain (severe 7-10) Last Admin: 05/31/21 10:16 Dose: 1 mg Documented by: Ondansetron HCl (Ondansetron 4 Mg/2 Ml Sdv) 4 mg IVPUSH Q4H PRN PRN Reason: Nausea/Vomiting Sodium Chloride (Sodium Chloride 0.9% 10 Ml Syringe) 10 ml FLUSH ASDIRECTED PRN PRN Reason: Keep Vein Open Discontinued Medications Norepinephrine Bitartrate 4 mg (/ Dextrose/Water) 250 mls @ 7.5 mls/hr IV TITRATE [facility]; Protocol Potassium Chloride 20 meq/ (Premix) 100 mls @ 50 mls/hr IV ONETIME ONE Stop: 05/30/21 21:11 Last Admin: 05/30/21 19:40 Dose: 50 mls/hr Documented by: Magnesium Sulfate 2 gm/ Premix 50 mls @ 25 mls/hr IV ONETIME ONE Stop: 05/30/21 21:12 Last Admin: 05/30/21 19:43 Dose: 25 mls/hr Documented by: Multivitamins/Minerals 10 ml/Folic Acid 1 mg/ Thiamine HCl 100 mg/ Lactated Ringer's 1,011.2 mls @ 999 mls/hr IV ONETIME ONE Stop: 05/30/21 20:13 Last Admin: 05/30/21 19:41 Dose: 999 mls/hr Documented by: Sodium Chloride (Normal Saline) 1,000 mls @ 75 mls/hr IV ASDIRECTED [facility] Last Admin: 05/30/21 23:26 Dose: 75 mls/hr Documented by: Magnesium Sulfate 2 gm/ Premix 50 mls @ 25 mls/hr IV ONETIME ONE Stop: 05/31/21 00:29 Last Admin: 05/30/21 23:26 Dose: 25 mls/hr Documented by: Ketorolac Tromethamine (Ketorolac 30 Mg/Ml Sdv) 30 mg IVPUSH ONETIME ONE Stop: 05/30/21 18:35 Last Admin: 05/30/21 19:30 Dose: 30 mg Documented by: Potassium Chloride (Potassium Chloride 10 Meq Tab.Er) 40 meq PO Q2H [facility] Stop: 05/31/21 00:31 Last Admin: 05/31/21 01:26 Dose: 40 meq Documented by: - Exam General: Reports: Alert, Oriented HEENT: Reports: Pupils Equal, Pupils Reactive, EOMI, Mucous Membr. Moist/Bent Neck: Reports: Supple Lungs: Reports: Decreased Breath Sounds Cardiovascular: Reports: Irregular Rhythm GI/Abdominal Exam: Normal Bowel Sounds, Soft, Non-Tender, No Organomegaly, No Distention, No Abnormal Bruit, No Mass, Pelvis Stable Back Exam: Reports: Normal Inspection, Full Range of Motion Extremities: Normal Inspection, Normal Range of Motion, Non-Tender, No Pedal Edema, Normal Capillary Refill Skin: Reports: Warm, Dry, Intact Wound/Incisions: Reports: Healing Well Neurological: Reports: No New Focal Deficit Psy/Mental Status: Reports: Alert, Normal Affect, Normal Mood
[2021-05-31] MEDS ORDERED: atorvaSTATin 20 MG Tab PO SCH (21:00)
== END 2021-05-31 16:05 | disposition home or self-care (01) ==
LOC: DL.ED 16:38 → DL.MS 22:10
PROVIDERS: ADMIT Internal Medicine; ATTEND Internal Medicine
DX: M54.9 Dorsalgia, unspecified (principal); G93.40 Encephalopathy, unspecified; I48.91 Unspecified atrial fibrillation; I25.10 Atherosclerotic heart disease of native coronary artery without angina pectoris; E78.00 Pure hypercholesterolemia, unspecified; I25.2 Old myocardial infarction; E66.9 Obesity, unspecified; F17.210 Nicotine dependence, cigarettes, uncomplicated; J44.9 Chronic obstructive pulmonary disease, unspecified; E87.6 Hypokalemia; E83.42 Hypomagnesemia; I48.0 Paroxysmal atrial fibrillation; I10 Essential (primary) hypertension; E78.5 Hyperlipidemia, unspecified; Z20.822 Contact with and (suspected) exposure to COVID-19; Z88.8 Allergy status to other drugs, medicaments and biological substances; Z79.82 Long term (current) use of aspirin; Z79.899 Other long term (current) drug therapy; Z98.890 Other specified postprocedural states
CPT/HCPCS: 36415; 70450; 71250; 74176; 80053; 80061; 80305; 80307; 81001; 82607; 82746; 83605; 83735; 83880; 84439; 84443; 84484; 85025; 85610; 85730; 86140; 93005; 93306; 93880; 96365; 96366; 96368; 96375; 96376; 97162; 97165; 99285; A9270; G0378; J1885; J2270; J3411; J3475; J3480; J7030; J7120; U0002; J3490

== ENCOUNTER 2021-11-01 10:51 | Emergency (ER) | payer MEDICARE, OTHER ==
[2021-11-01] MEDS ORDERED: GI Cocktail Oral Solution 30 ML PO ONE (11:41)
[2021-11-01] MEDS ORDERED: MVI, Adult with Vitamin K 10 ML, Thiamine 100 MG, Folic Acid 1 MG in Lactated Ringers 1... IV ONE ×4 (11:41)
--- NOTE | 2021-11-01 11:54 | EDM.PDOC ---
ED HPI GENERAL MEDICAL PROBLEM - General Chief Complaint: Cardiovascular Problem Stated Complaint: AMBULANCE Time Seen by Provider: 11/01/21 11:40 Source of Information: Reports: Patient, EMS, Old Records, Provider (Yuly, DIRECTOR OF ENROLLMENT from [facility] [address]), RN, RN Notes Reviewed History Limitations: Reports: No Limitations - History of Present Illness INITIAL COMMENTS - FREE TEXT/NARRATIVE: Mateus is a 61 y/o male with a history of Afib, CAD, HTN, CVA, and chronic ETOH use who presents to the ED via [facility] at the request of his PCP for complaints of chest pain and shortness of breath. Per [facility] DIRECTOR OF ENROLLMENT, the patient was noted to be in AFIb with RVR in the clinic today. He was given ASA 235mg and a NS 1L bolus prior to transfer to this facility. Upon arrival to [facility] facility the patient is alert and oriented to self, only. HR in the 90s with appropriate blood pressure. He notes his chest pain is still present, he describes the pain as an ache localized to his [id number] chest; he notes the pain makes breathing difficult. Additionally, he notes nausea with dry heaving. He denies recent illness, fever, shaking chills, vision changes, palpitations, vomiting, abdominal pain, dysuria, diarrhea, or constipation. The patient reports drinking large quantities of alcohol over the past three day with his last drink occurring at 1800 last night; he attests to smoking 2-3 cigarettes per day and cannabis when he is able to get some. The patient denies a history of COVID infection and notes he is vaccinated for COVID-19 but has not yet received a booster. sternal Pain Score (Numeric/FACES): 7 - Related Data Allergies Allergy/AdvReac Type Severity Reaction Status Date / Time iodine Allergy Airway Verified 11/01/21 11:39 Tightness Home Meds: Home Meds Aspirin [Aspirin EC] 81 mg PO DAILY 06/26/20 [History] Multivitamins/Minerals [Vitamins and Minerals] 1 tab PO BEDTIME tablet 06/27/20 [Rx] Magnesium Oxide 400 mg PO DAILY 09/27/20 [History] Thiamine HCl [Vitamin B-1] 100 mg PO DAILY 09/27/20 [History] Apixaban [Eliquis] 5 mg PO BID 05/30/21 [History] Carboxymethylcellulose Sodium [Refresh Liquigel 1%] 2 drop EYEBOTH QID 05/30/21 [History] Pravastatin [Pravachol] 20 mg PO DAILY 05/30/21 [History] Isosorbide Mononitrate [Imdur] 60 mg PO ACBREAKFAST 30 Days #30 tab.er 05/31/21 [Rx] Metoprolol Succinate [Toprol XL 50mg] 50 mg PO DAILY 11/01/21 [History] Past Medical History HEENT History: Reports: Impaired Vision Cardiovascular History: Reports: Afib, CAD, High Cholesterol, PA Other Cardiovascular History: PA in 2017 Respiratory History: Reports: None Gastrointestinal History: Reports: GI Bleed Genitourinary History: Reports: None Musculoskeletal History: Reports: Back Pain, Chronic Other Musculoskeletal History: wrist Neurological History: Reports: None Psychiatric History: Reports: Addiction Endocrine/Metabolic History: Reports: Obesity/BMI 30+ Hematologic History: Reports: None Immunologic History: Reports: None Oncologic (Cancer) History: Reports: None Dermatologic History: Reports: None - Infectious Disease History Infectious Disease History: Reports: Chicken Pox - Past Surgical History Head Surgeries/Procedures: Reports: None HEENT Surgical History: Reports: None Cardiovascular Surgical History: Reports: None Respiratory Surgical History: Reports: None GI Surgical History: Reports: Hernia, Abdominal Neurological Surgical History: Reports: Other (See Below) Other Neurological Surgeries/Procedures: kyphoplasty L3 and L4 Musculoskeletal Surgical History: Reports: None Social & Family History - Family History Family Medical History: No Pertinent Family History - Caffeine Use Caffeine Use: Reports: Soda - Living Situation & Occupation Occupation: Unemployed ED ROS GENERAL - Review of Systems Review Of Systems: Comprehensive ROS is negative, except as noted in HPI. ED EXAM, GENERAL - Physical Exam Exam: See Below Exam Limited By: No Limitations General Appearance: Alert, No Apparent Distress Eye Exam: Bilateral Eye: EOMI, PERRL (3mm), Other (Sleral icterus) Ears: Normal External Exam, Hearing Grossly Normal Nose: Normal Inspection Throat/Mouth: Normal Voice, No Airway Compromise. No: Normal Oropharynx (Dry mucous membranes) Head: Atraumatic, Normocephalic Neck: Normal Inspection, Supple, Non-Tender, Full Range of Motion Respiratory/Chest: No Respiratory Distress, No Accessory Muscle Use, Rales (Right mid lobe), Rhonchi (Faint to bilateral upper lobes) Cardiovascular: Normal Peripheral Pulses, No Edema, No Gallop, No JVD, No Murmur, No Rub, Irregularly Irregular Peripheral Pulses: 2+: Radial (L), Radial (R) GI/Abdominal: Normal Bowel Sounds, Soft, Non-Tender, No Distention, No Abnormal Bruit, No Mass, Pelvis Stable (Male) Exam: Deferred Rectal (Males) Exam: Deferred Back Exam: Normal Inspection, Full Range of Motion Extremities: Normal Inspection, Normal Range of Motion, Non-Tender, No Pedal Edema, Normal Capillary Refill Neurological: Alert, Oriented, CN II-XII Intact, Normal Cognition, Normal Gait, No Motor/Sensory Deficits Psychiatric: Normal Affect, Normal Mood Skin Exam: Warm, Dry, Intact, Normal Color, No Rash. No: Cyanosis, Jaundice, Mottled, Pallor #1 Interpretation EKG Date: 11/01/21 Time: 11:44 Rhythm: A-Fib Rate (Beats/Min): 117 [place]: LAD-Left [place] Deviation P-Wave: Absent QRS: Wide (0.113) ST-T: Normal QT: Prolonged (QTc 0.503) Comparison: Change From Previous EKG (05/31/21) EKG Interpretation Comments: AFib; LAD; No evidence of acute myocardial ischemia Course - Vital Signs Last Recorded V/S: Last Vital Signs Temp 98.5 F 11/01/21 11:35 Pulse 97 11/01/21 11:35 Resp 14 11/01/21 11:35 BP 107/76 11/01/21 11:35 Pulse Ox 96 11/01/21 11:35 - Orders/Labs/Meds Orders: Active Orders 24 hr Category Date Time Status DRUG SCREEN URINE BIORAD [URCHEM] Urgent Lab 11/01/21 11:40 Ordered Sodium Chloride 0.9% [Normal Saline] 1,000 ml Med 11/01/21 15:02 Active IV .BOLUS Sodium Chloride 0.9% [Saline Flush] Med 11/01/21 12:15 Active 10 ml FLUSH ASDIRECTED Medication Orders Sodium Chloride (Normal Saline) 1,000 mls @ 999 mls/hr IV .BOLUS ONE Stop: 11/01/21 16:02 Last Admin: 11/01/21 15:18 Dose: 999 mls/hr Documented by: RAMESH Sodium Chloride (Sodium Chloride 0.9% 10 Ml Syringe) 10 ml FLUSH ASDIRECTED BRENT Last Admin: 11/01/21 15:18 Dose: 10 ml Documented by: Admin: 11/01/21 12:10 Dose: 10 ml Documented by: RAMESH Labs: Laboratory Tests 11/01/21 11/01/21 11/01/21 Range/Units 12:03 12:03 12:03 WBC 10.9 H (5.0-10.0) 10^3/uL RBC 4.70 (4.6-6.2) 10^6/uL Hgb 15.2 (14.0-18.0) g/dL Hct 43.8 (40.0-54.0) % MCV 93.2 (80-100) fL MCH 32.3 (27.0-34.0) pg MCHC 34.7 (33.0-35.0) g/dL Plt Count 170 (150-450) 10^3/uL Neut % (Auto) 82.6 H (42.2-75.2) % Lymph % (Auto) 11.3 L (20.5-50.1) % Lares % (Auto) 5.1 (2-8) % Eos % (Auto) 0.4 L (1.0-3.0) % Baso % (Auto) 0.6 (0.0-1.0) % PT 11.0 (9.0-12.0) SEC INR 1.1 (0.9-1.2) APTT 30.6 (22.0-34.0) SEC Sodium 137 (136-145) mmol/L Potassium 3.3 L (3.5-5.1) mmol/L Chloride 99 (98-107) mmol/L Carbon Dioxide 23 (21-32) mmol/L Anion Gap 18.3 H (7-13) mEq/L BUN 9 (7-18) mg/dL Creatinine 0.85 (0.70-1.30) mg/dL Est Cr Clr Drug Dosing 101.83 mL/min Estimated GFR (MDRD) > 60 BUN/Creatinine Ratio 10.6 (No establ ref range) Glucose 101 H (70-99) mg/dL Lactic Acid (0.4-2.0) mmol/L Calcium 8.3 L (8.5-10.1) mg/dL Magnesium 1.7 L (1.8-2.4) mg/dL Total Bilirubin 1.5 H (0.2-1.0) mg/dL AST 43 H (15-37) U/L ALT 33 (16-63) U/L Alkaline Phosphatase 142 H (46-116) U/L Troponin I High Sens 87 H* (<=76) pg/mL C-Reactive Protein < 0.2 (0.0-0.9) mg/dL B-Natriuretic Peptide 67 (0-100) pg/ml Total Protein 6.5 (6.4-8.2) g/dL Albumin 3.3 L (3.4-5.0) g/dL Globulin 3.2 Albumin/Globulin Ratio 1.03 Amylase 21 L (25-115) U/L Lipase 51 L (73-393) U/L Ethyl Alcohol 76 (0) mg/dL Influenza Type A RNA (NEGATIVE) Influenza Type B RNA (NEGATIVE) SARS-CoV-2 RNA (ESTER) (NEGATIVE) 11/01/21 11/01/21 11/01/21 Range/Units 12:03 13:28 15:03 WBC (5.0-10.0) 10^3/uL RBC (4.6-6.2) 10^6/uL Hgb (14.0-18.0) g/dL Hct (40.0-54.0) % MCV (80-100) fL MCH (27.0-34.0) pg MCHC (33.0-35.0) g/dL Plt Count (150-450) 10^3/uL Neut % (Auto) (42.2-75.2) % Lymph % (Auto) (20.5-50.1) % Lares % (Auto) (2-8) % Eos % (Auto) (1.0-3.0) % Baso % (Auto) (0.0-1.0) % PT (9.0-12.0) SEC INR (0.9-1.2) APTT (22.0-34.0) SEC Sodium (136-145) mmol/L Potassium (3.5-5.1) mmol/L Chloride (98-107) mmol/L Carbon Dioxide (21-32) mmol/L Anion Gap (7-13) mEq/L BUN (7-18) mg/dL Creatinine (0.70-1.30) mg/dL Est Cr Clr Drug Dosing mL/min Estimated GFR (MDRD) BUN/Creatinine Ratio (No establ ref range) Glucose (70-99) mg/dL Lactic Acid 3.6 H* 2.1 H* (0.4-2.0) mmol/L Calcium (8.5-10.1) mg/dL Magnesium (1.8-2.4) mg/dL Total Bilirubin (0.2-1.0) mg/dL AST (15-37) U/L ALT (16-63) U/L Alkaline Phosphatase (46-116) U/L Troponin I High Sens (<=76) pg/mL C-Reactive Protein (0.0-0.9) mg/dL B-Natriuretic Peptide (0-100) pg/ml Total Protein (6.4-8.2) g/dL Albumin (3.4-5.0) g/dL Globulin Albumin/Globulin Ratio Amylase (25-115) U/L Lipase (73-393) U/L Ethyl Alcohol (0) mg/dL Influenza Type A RNA Negative (NEGATIVE) Influenza Type B RNA Negative (NEGATIVE) SARS-CoV-2 RNA (ESTER) Negative (NEGATIVE) 11/01/21 Range/Units 15:03 WBC (5.0-10.0) 10^3/uL RBC (4.6-6.2) 10^6/uL Hgb (14.0-18.0) g/dL Hct (40.0-54.0) % MCV (80-100) fL MCH (27.0-34.0) pg MCHC (33.0-35.0) g/dL Plt Count (150-450) 10^3/uL Neut % (Auto) (42.2-75.2) % Lymph % (Auto) (20.5-50.1) % Lares % (Auto) (2-8) % Eos % (Auto) (1.0-3.0) % Baso % (Auto) (0.0-1.0) % PT (9.0-12.0) SEC INR (0.9-1.2) APTT (22.0-34.0) SEC Sodium (136-145) mmol/L Potassium (3.5-5.1) mmol/L Chloride (98-107) mmol/L Carbon Dioxide (21-32) mmol/L Anion Gap (7-13) mEq/L BUN (7-18) mg/dL Creatinine (0.70-1.30) mg/dL Est Cr Clr Drug Dosing mL/min Estimated GFR (MDRD) BUN/Creatinine Ratio (No establ ref range) Glucose (70-99) mg/dL Lactic Acid (0.4-2.0) mmol/L Calcium (8.5-10.1) mg/dL Magnesium (1.8-2.4) mg/dL Total Bilirubin (0.2-1.0) mg/dL AST (15-37) U/L ALT (16-63) U/L Alkaline Phosphatase (46-116) U/L Troponin I High Sens 82 H* (<=76) pg/mL C-Reactive Protein (0.0-0.9) mg/dL B-Natriuretic Peptide (0-100) pg/ml Total Protein (6.4-8.2) g/dL Albumin (3.4-5.0) g/dL Globulin Albumin/Globulin Ratio Amylase (25-115) U/L Lipase (73-393) U/L Ethyl Alcohol (0) mg/dL Influenza Type A RNA (NEGATIVE) Influenza Type B RNA (NEGATIVE) SARS-CoV-2 RNA (ESTER) (NEGATIVE) Meds: Medications Generic Name Dose Route Start Last Admin Trade Name Freq PRN Reason Stop Dose Admin Sodium Chloride 1,000 mls @ 999 mls/hr 11/01/21 15:02 11/01/21 15:18 Normal Saline IV 11/01/21 16:02 999 mls/hr .BOLUS ONE Administration Sodium Chloride 10 ml 11/01/21 12:15 11/01/21 15:18 Sodium Chloride 0.9% 10 Ml Syringe FLUSH 10 ml ASDIRECTED BRENT Administration Discontinued Medications Generic Name Dose Route Start Last Admin Trade Name Freq PRN Reason Stop Dose Admin Al Hydroxide/Mg Hydroxide 30 ml 11/01/21 11:41 11/01/21 12:18 Gi Cocktail Oral Solution 30 Ml PO 11/01/21 11:42 30 ml ONETIME ONE Administration Multivitamins/Minerals 10 ml/ 1,011.2 mls @ 999 mls/hr 11/01/21 11:41 11/01/21 13:26 Thiamine HCl 100 mg/ Folic IV 11/01/21 12:41 Infused Acid 1 mg/ Lactated Ringer's .BOLUS ONE Infusion Ondansetron HCl 4 mg 11/01/21 12:17 11/01/21 12:23 Ondansetron 4 Mg/2 Ml Sdv IVPUSH 11/01/21 12:18 4 mg ONETIME ONE Administration - Re-Assessments/Exams Free Text/Narrative Re-Assessment/Exam: 11/01/21 Banana Bag, GI Cocktail, and Zofran 4mg IVP administered while labs pending. Will trend troponin given chronic elevation. NS 1L bolus initiated. Troponin and Lactic Acid trending down. Findings of examination, lab work, and imaging reviewed with patient. Supportive cares discussed. Patient instructed to follow up with primary care provider and cardiology in 1-2 days regarding todays visit. Red flag signs and symptoms which would warrant immediate reevaluation reviewed. Patient verbalized understanding and agreement with the plan of care. Departure - Departure Time of Disposition: 15:34 Disposition: Home, Self-Care 01 Condition: Fair Clinical Impression: Hypomagnesemia, Hypokalemia, Nonspecific chest pain Acute alcohol intoxication Qualifiers: Complication of substance-induced condition: uncomplicated Qualified Code(s): F10.920 - Alcohol use, unspecified with intoxication, uncomplicated Atrial fibrillation Qualifiers: Atrial fibrillation type: permanent Qualified Code(s): I48.21 - Permanent atrial fibrillation Instructions: Nonspecific Chest Pain, Adult, Alcohol Intoxication Forms: ED Department Discharge Additional Instructions: 1.) Follow up with your primary care provider in 1-2 days regarding today's visit. 2.) Follow up with your sander hand in 1-2 days. 3.) Do not drink alcohol. 4.) Drink small, frequent sips of fluids to stay hydrated and avoid nausea. 5.) Eat a bland diet while you recover from your acute alcohol intoxication. Sepsis Event Note (ED) - Evaluation Sepsis Screening Result: No Definite Risk - Focused Exam Vital Signs: Vital Signs Temp Pulse Resp BP Pulse Ox 11/01/21 11:35 98.5 F 97 14 107/76 96 - My Orders Last 24 Hours: My Active Orders 11/01/21 11:40 DRUG SCREEN URINE BIORAD [URCHEM] Urgent 11/01/21 12:15 Sodium Chloride 0.9% [Saline Flush] 10 ml FLUSH ASDIRECTED 11/01/21 15:02 Sodium Chloride 0.9% [Normal Saline] 1,000 ml IV .BOLUS - Assessment/Plan Last 24 Hours: My Active Orders 11/01/21 11:40 DRUG SCREEN URINE BIORAD [URCHEM] Urgent 11/01/21 12:15 Sodium Chloride 0.9% [Saline Flush] 10 ml FLUSH ASDIRECTED 11/01/21 15:02 Sodium Chloride 0.9% [Normal Saline] 1,000 ml IV .BOLUS
[2021-11-01] MEDS: Sodium Chloride 0.9% 10 ML Syringe FLUSH SCH ×2 (12:10→15:18)
[2021-11-01] MEDS ORDERED: Ondansetron 4 MG/2 ML SDV IVPUSH ONE (12:17)
--- NOTE | 2021-11-01 12:27 | CR ---
EXAMINATION: Chest 1V Frontal SEX: Male AGE: 61 years CLINICAL HISTORY: 61-year-old male chest pain, shortness of breath and "rales" right midlung. Comparison CXR 26 June 2020. Interpretation: No acute new cardiopulmonary abnormality. Normal cardiac silhouette (size and configuration). Left-sided arch ectatic aorta. External telemetry monitor leads. No suspicious new lung mass or hilar/mediastinal lymphadenopathy. No alveolar consolidation, air bronchograms, or peripheral "groundglass" interstitial lung densities (GGO). No pneumothorax or pneumomediastinum. No free subdiaphragmatic air. Suggestion hiatus hernia.
[2021-11-01 12:28] LABS: PTT,PARTIAL THROMBOPLSTIN TIME 30.6 SEC (22.0-34.0)
[2021-11-01 12:31] LABS: ANION GAP 18.3 mEq/L (7-13); CHLORIDE,CL 99 mmol/L (98-107); SODIUM,NA 137 mmol/L (136-145)
[2021-11-01 14:22] LABS: CORONAVIRUS COVID-19 NAA NEGATIVE (NEGATIVE)
[2021-11-01] MEDS ORDERED: Sodium Chloride 0.9% 1,000 ML IV ONE (15:02)
== END 2021-11-01 16:57 | disposition home or self-care (01) ==
LOC: DL.ED 10:51
DX: I48.21 Permanent atrial fibrillation (principal); F10.129 Alcohol abuse with intoxication, unspecified; E87.6 Hypokalemia; E83.42 Hypomagnesemia; I25.10 Atherosclerotic heart disease of native coronary artery without angina pectoris; I10 Essential (primary) hypertension; I25.2 Old myocardial infarction; E66.9 Obesity, unspecified; Z68.30 Body mass index [BMI] 30.0-30.9, adult; Z86.73 Personal history of transient ischemic attack (TIA), and cerebral infarction without residual deficits; Z91.041 Radiographic dye allergy status; Z20.822 Contact with and (suspected) exposure to COVID-19; Y90.3 Blood alcohol level of 60-79 mg/100 ml; Z79.82 Long term (current) use of aspirin; Z79.899 Other long term (current) drug therapy
CPT/HCPCS: 0240U; 36415; 71045; 80053; 80307; 82150; 83605; 83690; 83735; 83880; 84484; 85025; 85610; 85730; 86140; 93005; 96365; 96375; 99285; A9270; J2405; J3411; J7030; J7120; J3490

== ENCOUNTER 2022-09-19 11:04 | Emergency (ER) | payer MEDICARE, OTHER ==
[2022-09-19 12:03] LABS: PTT,PARTIAL THROMBOPLSTIN TIME 32.3 SEC (22.0-34.0)
[2022-09-19 12:09] LABS: ANION GAP 9.7 mEq/L (7-13); CHLORIDE,CL 104 mmol/L (98-107); ESTIMATED GFR 88 mL/min (>=60); SODIUM,NA 140 mmol/L (136-145)
[2022-09-19 12:21] LABS: CORONAVIRUS COVID-19 NAA NEGATIVE (NEGATIVE)
== END 2022-09-19 12:57 | disposition home or self-care (01) ==
LOC: DL.ED 11:04
DX: J18.9 Pneumonia, unspecified organism (principal); G89.29 Other chronic pain; M54.9 Dorsalgia, unspecified; I25.10 Atherosclerotic heart disease of native coronary artery without angina pectoris; E78.00 Pure hypercholesterolemia, unspecified; I25.2 Old myocardial infarction; E66.9 Obesity, unspecified; Z68.34 Body mass index [BMI] 34.0-34.9, adult; Z91.041 Radiographic dye allergy status; Z79.899 Other long term (current) drug therapy; Z79.82 Long term (current) use of aspirin; Z79.01 Long term (current) use of anticoagulants; Z20.822 Contact with and (suspected) exposure to COVID-19
CPT/HCPCS: 0240U; 36415; 71045; 80053; 80307; 83605; 83735; 83880; 84145; 84484; 85025; 85379; 85610; 85730; 86140; 87040; 93005; 99285

== ENCOUNTER 2023-02-24 14:00 | Emergency (ER) | payer MEDICARE, OTHER | END 2023-02-24 14:37 | disposition left against medical advice (07) | LOC: DL.ED 14:00 | DX: Z53.21 Procedure and treatment not carried out due to patient leaving prior to being seen by health care provider (principal) ==

== ENCOUNTER 2023-02-24 15:01 | Emergency (ER) | payer MEDICARE, OTHER ==
[2023-02-24] MEDS ORDERED: Ciprofloxacin 500 MG Tab PO ONE (15:02)
[2023-02-24] MEDS ORDERED: Ketorolac 30 MG/ML SDV IVPUSH ONE (17:13)
[2023-02-24] MEDS ORDERED: Ondansetron 4 MG/2 ML SDV IVPUSH ONE (17:13)
[2023-02-24] MEDS ORDERED: Sodium Chloride 0.9% 10 ML Syringe FLUSH PRN (17:13)
[2023-02-24 17:50] LABS: ANION GAP 13.5 mEq/L (7-13); CHLORIDE,CL 108 mmol/L (98-107); SODIUM,NA 145 mmol/L (136-145)
[2023-02-24 18:01] LABS: ESTIMATED GFR 87 mL/min (>=60)
[2023-02-24] MEDS ORDERED: Sodium Chloride 0.9% 1,000 ML IV ONE (19:07)
[2023-02-24] MEDS ORDERED: Acetaminophen 500 MG Tab PO ONE (19:43)
[2023-02-24] MEDS ORDERED: Ciprofloxacin 500 MG Tab ONE (20:37)
== END 2023-02-24 20:46 | disposition home or self-care (01) ==
LOC: DL.ED 15:01
DX: N30.01 Acute cystitis with hematuria (principal); M79.10 Myalgia, unspecified site; I48.91 Unspecified atrial fibrillation; I25.10 Atherosclerotic heart disease of native coronary artery without angina pectoris; E78.00 Pure hypercholesterolemia, unspecified; I25.2 Old myocardial infarction; E66.9 Obesity, unspecified; F17.210 Nicotine dependence, cigarettes, uncomplicated; Z91.041 Radiographic dye allergy status; Z79.4 Long term (current) use of insulin; Z68.34 Body mass index [BMI] 34.0-34.9, adult
CPT/HCPCS: 36415; 74176; 80053; 81001; 82150; 83605; 83690; 85025; 86140; 87086; 96374; 96375; 99284; 99284-25; A9270-GY; J1885; J2405; J3490; J7030

== ENCOUNTER 2024-02-04 10:06 | Emergency (ER) | payer MEDICARE, OTHER ==
[2024-02-04 10:37] LABS: BASOPHILS PERCENT AUTO 0.3 % (0.0-1.0); EOSINOPHILS PERCENT AUTO 0.6 % (1.0-3.0); HEMATOCRIT 42.5 % (40.0-54.0); HEMOGLOBIN 14.1 g/dL (14.0-18.0); LYMPHOCYTES PERCENT AUTO 19.4 % (20.5-50.1); MEAN CORPUSCULAR HEMOGLOBIN 31.8 pg (27.0-34.0); MEAN CORPUSCULAR HGB CONC 33.2 g/dL (33.0-35.0); MEAN CORPUSCULAR VOLUME 95.7 fL (80-100); MONOCYTES PERCENT AUTO 19.1 % (2-8); NEUTROPHILS PERCENT AUTO 60.6 % (42.2-75.2); PLATELET COUNT,PLT 199 10^3/uL (150-450); RED BLOOD CELL COUNT 4.44 10^6/uL (4.6-6.2)
[2024-02-04] MEDS: Sodium Chloride 0.9% 10 ML Syringe FLUSH PRN (10:41)
[2024-02-04 10:58] LABS: ALBUMIN 3.1 g/dL (3.4-5.0); ANION GAP 10.6 mEq/L (7-13); BUN/CREATININE RATIO 13.1 (No establ ref range); C-REACTIVE PROTEIN 3.42 ng/dL (<=0.50); CALCIUM 8.4 mg/dL (8.5-10.1); CREATININE 0.84 mg/dL (0.70-1.30); EST CRCL DRUG DOSING (CG) 103.29 mL/min; POTASSIUM,K 3.6 mmol/L (3.5-5.1); PROTEIN TOTAL,TP 6.3 g/dL (6.4-8.2); URIC ACID 3.5 mg/dL (3.5-7.2)
[2024-02-04 10:59] LABS: A/G RATIO 0.97
[2024-02-04] MEDS: Acetaminophen 500 MG Tab PO ONE (11:03)
[2024-02-04 11:07] LABS: LACTIC ACID 1.3 mmol/L (0.4-2.0)
[2024-02-04] MEDS: Vancomycin 2 GM in Sodium Chloride 0.9% 500 ML IV ONE (13:43)
[2024-02-04] MEDS: cefTRIAXone 2 GM Vial IVPUSH ONE (13:44)
== END 2024-02-04 14:34 ==
LOC: DL.ED 10:06
DX: M00.9 Pyogenic arthritis, unspecified (principal); F17.210 Nicotine dependence, cigarettes, uncomplicated; E78.00 Pure hypercholesterolemia, unspecified; I48.91 Unspecified atrial fibrillation; E66.9 Obesity, unspecified; Z68.34 Body mass index [BMI] 34.0-34.9, adult; Z79.01 Long term (current) use of anticoagulants; Z79.82 Long term (current) use of aspirin; Z79.899 Other long term (current) drug therapy; Z91.041 Radiographic dye allergy status
CPT/HCPCS: 20605; 36415; 80053; 83605; 84145; 84550; 85025; 86140; 87040; 87070; 87205; 96365; 96375; 99285; A9270; J0696; J3370; J7040; J3490

== ENCOUNTER 2024-05-29 10:43 | Emergency (ER) | payer MEDICARE, OTHER ==
[2024-05-29] MEDS: Aspirin 81 MG Tab.Chew PO ONE (10:56)
[2024-05-29] MEDS: Sodium Chloride 0.9% 1,000 ML IV ONE (10:56)
[2024-05-29 10:58] LABS: BASOPHILS PERCENT AUTO 0.4 % (0.0-1.0); EOSINOPHILS PERCENT AUTO 1.5 % (1.0-3.0); HEMATOCRIT 47.2 % (40.0-54.0); HEMOGLOBIN 16.2 g/dL (14.0-18.0); LYMPHOCYTES PERCENT AUTO 30.1 % (20.5-50.1); MEAN CORPUSCULAR HEMOGLOBIN 30.9 pg (27.0-34.0); MEAN CORPUSCULAR HGB CONC 34.3 g/dL (33.0-35.0); MEAN CORPUSCULAR VOLUME 90.1 fL (80-100); MONOCYTES PERCENT AUTO 6.6 % (2-8); NEUTROPHILS PERCENT AUTO 61.4 % (42.2-75.2); PLATELET COUNT,PLT 185 10^3/uL (150-450); RED BLOOD CELL COUNT 5.24 10^6/uL (4.6-6.2)
[2024-05-29 11:10] LABS: PROTHROMBIN TIME 10.6 SEC (9.0-12.0)
[2024-05-29 11:13] LABS: A/G RATIO 0.9; ALBUMIN 3.4 g/dL (3.4-5.0); ANION GAP 13.6 mEq/L (7-13); BILIRUBIN TOTAL 1.7 mg/dL (0.2-1.0); BUN/CREATININE RATIO 5.1 (No establ ref range); CALCIUM 8.8 mg/dL (8.5-10.1); CREATININE 0.99 mg/dL (0.70-1.30); EST CRCL DRUG DOSING (CG) 84.07 mL/min; MAGNESIUM 1.4 mg/dL (1.8-2.4); POTASSIUM,K 3.6 mmol/L (3.5-5.1)
[2024-05-29] MEDS: Magnesium Sulfate/Water 2 GM in Premix Bag 1 BAG IV ONE ×2 (11:46→13:35)
[2024-05-29] MEDS: Oseltamivir 75 MG Cap PO ONE (12:02)
[2024-05-29] MEDS: Magnesium Sulfate/Water 4 GM in Premix Bag 1 BAG IV ONE (13:40)
== END 2024-05-29 17:20 ==
LOC: DL.ED 10:43
DX: R07.2 Precordial pain (principal); I21.4 Non-ST elevation (NSTEMI) myocardial infarction; E86.0 Dehydration; E83.42 Hypomagnesemia; J10.1 Influenza due to other identified influenza virus with other respiratory manifestations; I48.91 Unspecified atrial fibrillation; E78.00 Pure hypercholesterolemia, unspecified; E66.9 Obesity, unspecified; F17.200 Nicotine dependence, unspecified, uncomplicated; Z79.52 Long term (current) use of systemic steroids; Z79.01 Long term (current) use of anticoagulants; Z79.899 Other long term (current) drug therapy; Z68.32 Body mass index [BMI] 32.0-32.9, adult; Z91.048 Other nonmedicinal substance allergy status; Z88.5 Allergy status to narcotic agent
CPT/HCPCS: 36415; 71045; 80053; 80307; 82947; 83690; 83735; 84484; 85025; 85610; 87804; 93005; 96361; 96365; 96366; 99285; A9270; J3475; J7030; U0002

== ENCOUNTER 2024-07-11 21:24 | Emergency (ER) | payer MEDICARE, OTHER ==
[2024-07-11] MEDS ORDERED: Omeprazole 20 MG Cap.CR PO ONE (21:25)
[2024-07-11 22:43] LABS: BASOPHILS PERCENT AUTO 0.2 % (0.0-1.0); EOSINOPHILS PERCENT AUTO 1.1 % (1.0-3.0); HEMATOCRIT 45.1 % (40.0-54.0); HEMOGLOBIN 14.4 g/dL (14.0-18.0); LYMPHOCYTES PERCENT AUTO 18.9 % (20.5-50.1); MEAN CORPUSCULAR HEMOGLOBIN 31.6 pg (27.0-34.0); MEAN CORPUSCULAR HGB CONC 31.9 g/dL (33.0-35.0); MEAN CORPUSCULAR VOLUME 98.9 fL (80-100); MONOCYTES PERCENT AUTO 18.5 % (2-8); NEUTROPHILS PERCENT AUTO 61.3 % (42.2-75.2); PLATELET COUNT,PLT 261 10^3/uL (150-450); RED BLOOD CELL COUNT 4.56 10^6/uL (4.6-6.2); WHITE BLOOD CELL COUNT,WBC 9.7 10^3/uL (5.0-10.0)
[2024-07-11 22:54] LABS: ALBUMIN 3.3 g/dL (3.4-5.0); ANION GAP 8.2 mEq/L (7-13); BILIRUBIN TOTAL 1.1 mg/dL (0.2-1.0); BUN/CREATININE RATIO 11.3 (No establ ref range); CALCIUM 8.9 mg/dL (8.5-10.1); CREATININE 1.15 mg/dL (0.70-1.30); EST CRCL DRUG DOSING (CG) 72.37 mL/min; POTASSIUM,K 4.2 mmol/L (3.5-5.1); URIC ACID 4.3 mg/dL (3.5-7.2)
[2024-07-11 22:57] LABS: LACTIC ACID 0.9 mmol/L (0.4-2.0)
[2024-07-11 22:58] LABS: A/G RATIO 0.89
[2024-07-11 23:26] LABS: C-REACTIVE PROTEIN 7.36 ng/dL (<=0.50); ETHANOL BLOOD MEDICAL < 3 mg/dL (0)
[2024-07-11 23:33] LABS: B-TYPE NATRIURETIC PEPTIDE,BNP 128 pg/ml (0-100)
[2024-07-12] MEDS: Sodium Chloride 0.9% 10 ML Syringe FLUSH PRN (00:37)
[2024-07-12] MEDS: methylPREDNISolone Sodium Succinate 125 MG/2 ML SDV IVPUSH ONE (00:37)
[2024-07-12] MEDS ORDERED: Omeprazole 20 MG Cap.CR ONE (00:50)
[2024-07-12] MEDS: Omeprazole 20 MG Cap.CR PO ONE (00:52)
[2024-07-12] MEDS: Take Home: predniSONE 20 MG, 4 Tab Pack PO ONE (00:58)
[2024-07-12 01:01] LABS: APPEARANCE,URINE CLEAR (CLEAR); BILIRUBIN,URINE NEGATIVE (NEGATIVE); COLOR,URINE YELLOW (YELLOW); GLUCOSE,URINE NEGATIVE (NEGATIVE); KETONES,URINE NEGATIVE (NEGATIVE); LEUKOCYTE ESTERASE,URINE NEGATIVE (NEGATIVE); NITRITE,URINE NEGATIVE (NEGATIVE); OCCULT BLOOD,URINE NEGATIVE (NEGATIVE); PH,URINE 7.5 (5.0-9.0); PROTEIN,URINE NEGATIVE (NEGATIVE); UROBILINOGEN,URINE 0.2 mg/dL (0.2-1.0)
== END 2024-07-12 01:09 | disposition home or self-care (01) ==
LOC: DL.ED 21:24
DX: M02.361 Reiter's disease, right knee (principal); M02.32 Reiter's disease, elbow; E78.00 Pure hypercholesterolemia, unspecified; E66.9 Obesity, unspecified; F17.210 Nicotine dependence, cigarettes, uncomplicated; Z88.5 Allergy status to narcotic agent; Z91.041 Radiographic dye allergy status; Z79.82 Long term (current) use of aspirin; Z79.899 Other long term (current) drug therapy; Z68.35 Body mass index [BMI] 35.0-35.9, adult
CPT/HCPCS: 36415; 80053; 80307; 81003; 83605; 83880; 84550; 85025; 86140; 96374; 99284; A9270; J2919; J3490

== ENCOUNTER 2024-07-24 14:03 | Inpatient (IN) | payer MEDICARE, OTHER ==
[2024-07-24] MEDS: Ondansetron 4 MG/2 ML SDV IVPUSH ONE (13:42)
[2024-07-24] MEDS: Acetaminophen 500 MG Tab PO ONE (13:42)
[2024-07-24] MEDS: Sodium Chloride 0.9% 10 ML Syringe FLUSH PRN (13:42)
[2024-07-24 13:52] LABS: BASOPHILS PERCENT AUTO 0.1 % (0.0-1.0); HEMATOCRIT 40.3 % (40.0-54.0); HEMOGLOBIN 13.3 g/dL (14.0-18.0); LYMPHOCYTES PERCENT AUTO 4.5 % (20.5-50.1); MEAN CORPUSCULAR HEMOGLOBIN 31.3 pg (27.0-34.0); MEAN CORPUSCULAR VOLUME 94.8 fL (80-100); MONOCYTES PERCENT AUTO 5.3 % (2-8); NEUTROPHILS PERCENT AUTO 90.1 % (42.2-75.2); PLATELET COUNT,PLT 231 10^3/uL (150-450); RED BLOOD CELL COUNT 4.25 10^6/uL (4.6-6.2); WHITE BLOOD CELL COUNT,WBC 21.5 10^3/uL (5.0-10.0)
[2024-07-24 14:13] LABS: A/G RATIO 0.85; ALBUMIN 2.9 g/dL (3.4-5.0); ANION GAP 10.5 mEq/L (7-13); BILIRUBIN TOTAL 0.8 mg/dL (0.2-1.0); BUN/CREATININE RATIO 10.4 (No establ ref range); C-REACTIVE PROTEIN 21.24 ng/dL (<=0.50); CALCIUM 8.3 mg/dL (8.5-10.1); CREATININE 1.06 mg/dL (0.70-1.30); EST CRCL DRUG DOSING (CG) 78.52 mL/min; POTASSIUM,K 3.5 mmol/L (3.5-5.1); PROTEIN TOTAL,TP 6.3 g/dL (6.4-8.2)
[2024-07-24 14:19] LABS: LACTIC ACID 3.3 mmol/L (0.4-2.0)
[2024-07-24] MEDS: Sodium Chloride 0.9% 1,000 ML IV ONE ×2 (14:21→15:32)
[2024-07-24] MEDS: HYDROmorphone 0.5 MG/0.5 ML Syringe IVPUSH ONE ×2 (14:33→14:42)
[2024-07-24] MEDS: Vancomycin 2 GM in Sodium Chloride 0.9% 500 ML IV ONE (14:39)
[2024-07-24] MEDS: HYDROmorphone 0.5 MG/0.5 ML Syringe ONE (14:43)
[2024-07-24] MEDS ORDERED: Naloxone 2 MG/2 ML Syringe IVPUSH PRN (15:14)
[2024-07-24] MEDS ORDERED: Albuterol/Ipratropium 3.0-0.5 MG/3 ML Neb Soln NEB PRN (15:14)
[2024-07-24] MEDS ORDERED: Ondansetron 4 MG/2 ML SDV IVPUSH PRN (15:14)
[2024-07-24] MEDS ORDERED: Insulin Lispro 100 Units/ML 3 ML Vial SUBCUT SCH (15:15)
[2024-07-24] MEDS: Sodium Chloride 0.9% 1,000 ML IV SCH (16:04)
[2024-07-24] MEDS: Cholecalciferol (Vitamin D3) 25 MCG Tab PO SCH (16:04)
[2024-07-24] MEDS: Pravastatin 20 MG Tab PO SCH (16:04)
[2024-07-24] MEDS: Apixaban 5 MG Tab PO SCH (16:04)
[2024-07-24] MEDS: Folic Acid 1 MG Tab PO SCH (16:04)
[2024-07-24] MEDS: Pantoprazole 40 MG Tab.CR PO SCH (16:04)
[2024-07-24] MEDS: Thiamine 100 MG Tab PO SCH (16:04)
[2024-07-24] MEDS: Piperacillin/Tazobactam 4.5 GM in Sodium Chloride 0.9% 100 ML IV ONE (16:05)
[2024-07-24] MEDS: oxyCODONE 5 MG Tab PO PRN (16:22)
[2024-07-24] MEDS: HYDROmorphone 0.5 MG/0.5 ML Syringe IVPUSH PRN (17:59)
[2024-07-25] MEDS: Piperacillin/Tazobactam 4.5 GM in Sodium Chloride 0.9% 100 ML IV SCH (00:05)
[2024-07-25 07:14] LABS: CREATININE 0.98 mg/dL (0.70-1.30); EST CRCL DRUG DOSING (CG) 92.26 mL/min; VANCOMYCIN RANDOM 20.1 ug/mL (No Normal Range)
[2024-07-25] MEDS: Magnesium Oxide 400 MG Tab PO SCH (09:18)
[2024-07-25] MEDS: Metoprolol Succinate 50 MG Tab.ER PO SCH (09:18)
[2024-07-25] MEDS: Lidocaine 5% 700 MG Patch TRDERM SCH (09:19)
[2024-07-25] MEDS: Sodium Chloride 0.9% 100 ML IV PRN (14:03)
[2024-07-25 14:24] LABS: HEMATOCRIT 41.2 % (40.0-54.0); HEMOGLOBIN 13.3 g/dL (14.0-18.0); MEAN CORPUSCULAR HEMOGLOBIN 31.4 pg (27.0-34.0); MEAN CORPUSCULAR HGB CONC 32.3 g/dL (33.0-35.0); MEAN CORPUSCULAR VOLUME 97.4 fL (80-100); RED BLOOD CELL COUNT 4.23 10^6/uL (4.6-6.2); WHITE BLOOD CELL COUNT,WBC 16.8 10^3/uL (5.0-10.0)
[2024-07-25 15:20] LABS: ANION GAP 8.9 mEq/L (7-13); CALCIUM 8.3 mg/dL (8.5-10.1); CREATININE 0.9 mg/dL (0.70-1.30); EST CRCL DRUG DOSING (CG) 100.46 mL/min; POTASSIUM,K 3.9 mmol/L (3.5-5.1)
[2024-07-25] MEDS: Furosemide 40 MG/4 ML VIAL IVPUSH SCH (17:17)
[2024-07-25] MEDS: Acetaminophen 500 MG Tab PO PRN (20:30)
[2024-07-26] MEDS: Docusate Sodium 100 MG Cap PO PRN (00:47)
[2024-07-26 06:54] LABS: CREATININE 0.94 mg/dL (0.70-1.30); EST CRCL DRUG DOSING (CG) 96.19 mL/min; VANCOMYCIN RANDOM 20.1 ug/mL (No Normal Range)
[2024-07-26 13:27] LABS: BASOPHILS PERCENT AUTO 0.2 % (0.0-1.0); HEMOGLOBIN 12.7 g/dL (14.0-18.0); LYMPHOCYTES PERCENT AUTO 10.6 % (20.5-50.1); MEAN CORPUSCULAR HEMOGLOBIN 30.9 pg (27.0-34.0); MEAN CORPUSCULAR HGB CONC 31.8 g/dL (33.0-35.0); MEAN CORPUSCULAR VOLUME 97.3 fL (80-100); MONOCYTES PERCENT AUTO 7.4 % (2-8); NEUTROPHILS PERCENT AUTO 79.8 % (42.2-75.2); PLATELET COUNT,PLT 194 10^3/uL (150-450); RED BLOOD CELL COUNT 4.11 10^6/uL (4.6-6.2); WHITE BLOOD CELL COUNT,WBC 9.2 10^3/uL (5.0-10.0)
[2024-07-26 13:43] LABS: ANION GAP 6.9 mEq/L (7-13); CALCIUM 8.4 mg/dL (8.5-10.1); CREATININE 0.98 mg/dL (0.70-1.30); EST CRCL DRUG DOSING (CG) 92.26 mL/min; POTASSIUM,K 3.9 mmol/L (3.5-5.1)
[2024-07-26] MEDS: Bumetanide 1 MG/4 ML MDV IVPUSH ONE (15:37)
[2024-07-27 06:28] LABS: BASOPHILS PERCENT AUTO 0.2 % (0.0-1.0); EOSINOPHILS PERCENT AUTO 2.1 % (1.0-3.0); HEMOGLOBIN 12.8 g/dL (14.0-18.0); LYMPHOCYTES PERCENT AUTO 11.1 % (20.5-50.1); MEAN CORPUSCULAR HEMOGLOBIN 31.2 pg (27.0-34.0); MEAN CORPUSCULAR HGB CONC 32.8 g/dL (33.0-35.0); MEAN CORPUSCULAR VOLUME 95.1 fL (80-100); MONOCYTES PERCENT AUTO 9.8 % (2-8); NEUTROPHILS PERCENT AUTO 76.8 % (42.2-75.2); PLATELET COUNT,PLT 206 10^3/uL (150-450); WHITE BLOOD CELL COUNT,WBC 11.7 10^3/uL (5.0-10.0)
[2024-07-27 06:43] LABS: ANION GAP 9.4 mEq/L (7-13); CALCIUM 8.3 mg/dL (8.5-10.1); CREATININE 0.82 mg/dL (0.70-1.30); EST CRCL DRUG DOSING (CG) 110.26 mL/min; POTASSIUM,K 3.4 mmol/L (3.5-5.1)
[2024-07-27] MEDS: methylPREDNISolone Sodium Succinate 125 MG/2 ML SDV IVPUSH ONE (11:56)
== END 2024-07-27 13:00 | DRG 872 ==
LOC: DL.ED 14:03 → DL.MS 14:55
PROVIDERS: ADMIT Internal Medicine; ATTEND Internal Medicine
DX: A41.9 Sepsis, unspecified organism (principal); L03.116 Cellulitis of left lower limb; L03.115 Cellulitis of right lower limb; J44.9 Chronic obstructive pulmonary disease, unspecified; I48.91 Unspecified atrial fibrillation; M06.9 Rheumatoid arthritis, unspecified; Z68.33 Body mass index [BMI] 33.0-33.9, adult; E78.00 Pure hypercholesterolemia, unspecified; Z91.018 Allergy to other foods; E66.9 Obesity, unspecified; Z68.37 Body mass index [BMI] 37.0-37.9, adult; H54.7 Unspecified visual loss; F17.210 Nicotine dependence, cigarettes, uncomplicated; Z88.5 Allergy status to narcotic agent; Z88.8 Allergy status to other drugs, medicaments and biological substances; Z79.01 Long term (current) use of anticoagulants; Z79.52 Long term (current) use of systemic steroids; Z79.899 Other long term (current) drug therapy
CPT/HCPCS: 36415; 80048; 80053; 80202; 82565; 82947; 83605; 83880; 84145; 85025; 85027; 86140; 87040; 93970; 96374; 96375; 99223; 99232; 99233; 99239; 99285; 99285-25; A9270-GY; J1170; J1940; J2405; J2543; J2919; J3370; J3490; J7030; J7040; J7050

== ENCOUNTER 2025-01-02 12:37 | Emergency (ER) | payer MEDICARE, OTHER ==
[2025-01-02] MEDS ORDERED: Sodium Chloride 0.9% 10 ML Syringe FLUSH PRN (12:40)
[2025-01-02 13:27] LABS: BASE EXCESS VENOUS 1.6 mmol/l ((-2)-(+3)); BICARBONATE,VENOUS 23 mmol/l (19-25); O2 DELIVERY DEVICE NASAL CANNULA; O2 SATURATION VENOUS 90.9 % (60-80); PCO2 VENOUS 27 mmHg (41-51); PH,VENOUS 7.54 (7.31-7.41); PO2 VENOUS 65 mmHg (35-42)
[2025-01-02 13:28] LABS: EOSINOPHILS PERCENT AUTO 0.4 % (1.0-3.0); HEMOGLOBIN 15.8 g/dL (14.0-18.0); LYMPHOCYTES PERCENT AUTO 33.7 % (20.5-50.1); MEAN CORPUSCULAR HEMOGLOBIN 30.9 pg (27.0-34.0); MEAN CORPUSCULAR HGB CONC 35.1 g/dL (33.0-35.0); MEAN CORPUSCULAR VOLUME 87.9 fL (80-100); MONOCYTES PERCENT AUTO 6.8 % (2-8); NEUTROPHILS PERCENT AUTO 58.1 % (42.2-75.2); PLATELET COUNT,PLT 144 10^3/uL (150-450); RED BLOOD CELL COUNT 5.12 10^6/uL (4.6-6.2); WHITE BLOOD CELL COUNT,WBC 7.6 10^3/uL (5.0-10.0)
[2025-01-02 13:47] LABS: PROTHROMBIN TIME 10.5 SEC (9.0-12.0); PTT,PARTIAL THROMBOPLSTIN TIME 25.8 SEC (22.0-34.0)
[2025-01-02 13:48] LABS: B-TYPE NATRIURETIC PEPTIDE,BNP 19 pg/ml (0-100)
[2025-01-02 13:52] LABS: A/G RATIO 0.9; ALANINE AMINOTRANSFERASE,ALT 43 U/L (16-63); ALBUMIN 3.4 g/dL (3.4-5.0); ALKALINE PHOSPHATASE 178 U/L (46-116); ANION GAP 19.1 mEq/L (7-13); ASPARTATE AMNIOTRANSFERASE,AST 67 U/L (15-37); BILIRUBIN TOTAL 1.5 mg/dL (0.2-1.0); BLOOD UREA NITROGEN,BUN 8 mg/dL (7-18); BUN/CREATININE RATIO 9.3 (No establ ref range); CALCIUM 8.3 mg/dL (8.5-10.1); CARBON DIOXIDE,CO2 24 mmol/L (21-32); CHLORIDE,CL 100 mmol/L (98-107); CREATININE 0.86 mg/dL (0.70-1.30); ESTIMATED GFR 96 mL/min (>=60); ETHANOL BLOOD MEDICAL 218 mg/dL (0); GLUCOSE RANDOM 112 mg/dL (70-99); MAGNESIUM 1.6 mg/dL (1.8-2.4); POTASSIUM,K 4.1 mmol/L (3.5-5.1); PROTEIN TOTAL,TP 7.2 g/dL (6.4-8.2); SODIUM,NA 139 mmol/L (136-145)
[2025-01-02 13:53] LABS: C-REACTIVE PROTEIN < 0.50 ng/dL (<=0.50)
[2025-01-02 14:09] LABS: APPEARANCE,URINE SLIGHTLY CLOUDY (CLEAR); BILIRUBIN,URINE NEGATIVE (NEGATIVE); COLOR,URINE DARK YELLOW (YELLOW); GLUCOSE,URINE NEGATIVE (NEGATIVE); KETONES,URINE 40 (NEGATIVE); LEUKOCYTE ESTERASE,URINE NEGATIVE (NEGATIVE); NITRITE,URINE NEGATIVE (NEGATIVE); OCCULT BLOOD,URINE TRACE-INTACT (NEGATIVE); PROTEIN,URINE 100 (NEGATIVE)
[2025-01-02 14:13] LABS: AMPHETAMINES,URINE NEGATIVE (NEGATIVE); BARBITURATES,URINE NEGATIVE (NEGATIVE); BENZODIAZEPINE,URINE NEGATIVE (NEGATIVE); MDMA (ECSTASY), URINE NEGATIVE (NEGATIVE); METHADONE,URINE NEGATIVE (NEGATIVE); METHAMPHETAMINES,URINE NEGATIVE (NEGATIVE); OPIATES,URINE NEGATIVE (NEGATIVE); OXYCODONE,URINE NEGATIVE (NEGATIVE); PHENCYCLIDINE,URINE NEGATIVE (NEGATIVE); TCA,URINE NEGATIVE (NEGATIVE)
[2025-01-02 14:26] LABS: BACTERIA,URINE FEW /HPF (0-FEW/HPF); EPITHELIAL CELLS,URINE FEW /HPF (NOT SEEN); HYALINE CASTS,URINE MODERATE; MUCUS,URINE MANY /LPF (NOT SEEN); WBC,URINE 0-5 /HPF (0-5/HPF)
[2025-01-02] MEDS: Magnesium Sulf/Wat 2 GM/50 mL 2 GM in Premix Bag 1 BAG IV ONE (14:33)
[2025-01-02] MEDS: Lactated Ringers 1,000 ML IV SCH ×2 (14:33→16:23)
[2025-01-02] MEDS: Ondansetron 4 MG/2 ML SDV IVPUSH ONE (14:34)
[2025-01-02] MEDS: Thiamine 100 MG in Sodium Chloride 0.9% 100 ML IV ONE (15:08)
[2025-01-02] MEDS: Thiamine 400 MG in Sodium Chloride 0.9% 250 ML IV ONE (15:28)
[2025-01-02] MEDS: cefTRIAXone 1 GM Vial IVPUSH ONE (16:13)
[2025-01-02] MEDS: Naloxone 2 MG/2 ML Syringe IVPUSH ONE (16:13)
[2025-01-02] MEDS ORDERED: Thiamine 500 MG in Sodium Chloride 0.9% 250 ML IV SCH (23:30)
== END 2025-01-02 17:42 ==
LOC: DL.ED 12:37
DX: F10.20 Alcohol dependence, uncomplicated (principal); E78.00 Pure hypercholesterolemia, unspecified; E66.9 Obesity, unspecified; Z79.899 Other long term (current) drug therapy; Z88.5 Allergy status to narcotic agent; Z88.8 Allergy status to other drugs, medicaments and biological substances
CPT/HCPCS: 36415; 70450; 71250; 74176; 80053; 80179; 80305-QW; 80307; 81001; 82140; 82803; 83605; 83735; 83880; 84484; 85025; 85610; 85730; 86140; 87040; 87428-QW; 93005; 96361; 96365; 96367; 96375; 99285-25; C1758; J0696; J2310; J2405; J3411; J3475; J7120

== ENCOUNTER 2025-03-03 09:28 | Inpatient (IN) | payer MEDICARE, OTHER ==
[2025-03-03] MEDS: HYDROmorphone 1 MG/ML Syringe IVPUSH ONE ×2 (10:09→11:57)
[2025-03-03 10:11] LABS: HEMATOCRIT 45.2 % (40.0-54.0); HEMOGLOBIN 14.7 g/dL (14.0-18.0); MEAN CORPUSCULAR HEMOGLOBIN 31.1 pg (27.0-34.0); MEAN CORPUSCULAR HGB CONC 32.5 g/dL (33.0-35.0); MEAN CORPUSCULAR VOLUME 95.6 fL (80-100); PLATELET COUNT,PLT 166 10^3/uL (150-450); RED BLOOD CELL COUNT 4.73 10^6/uL (4.6-6.2); WHITE BLOOD CELL COUNT,WBC 9.5 10^3/uL (5.0-10.0)
[2025-03-03 10:13] LABS: EOSINOPHILS PERCENT AUTO 1.9 % (1.0-3.0); MONOCYTES PERCENT AUTO 16.8 % (2-8); NEUTROPHILS PERCENT AUTO 62.1 % (42.2-75.2)
[2025-03-03 10:14] LABS: BASOPHILS PERCENT AUTO 1.2 % (0.0-1.0)
[2025-03-03 10:24] LABS: ANION GAP 7.8 mEq/L (7-13); CALCIUM 8.9 mg/dL (8.5-10.1); CREATININE 0.84 mg/dL (0.70-1.30); EST CRCL DRUG DOSING (CG) 96.23 mL/min; POTASSIUM,K 3.8 mmol/L (3.5-5.1)
[2025-03-03 10:25] LABS: LYMPHOCYTES PERCENT MAN 15 % (20-50); MONOCYTES PERCENT MAN 21 % (2-8); SEG NEUTROPHILS PERCENT MAN 64 % (42-75)
[2025-03-03] MEDS: Lidocaine 1% with EPINEPHrine 1:100,000 20 ML MDV INJECT ONE (15:10)
[2025-03-03] MEDS ORDERED: Morphine 2 MG/ML SYRINGE IVPUSH PRN (15:40)
[2025-03-03] MEDS ORDERED: Polyethylene Glycol 3350 Powder 17 GM Packet PO PRN (15:40)
[2025-03-03] MEDS ORDERED: Sodium Chloride 0.9% 10 ML Syringe FLUSH PRN (15:40)
[2025-03-03] MEDS ORDERED: Diclofenac Sodium 1% Gel 100 GM Tube TOP PRN (15:47)
[2025-03-03 15:51] LABS: CORONAVIRUS COVID-19 NAA NEGATIVE (NEGATIVE); INFLUENZA A NAA NEGATIVE (NEGATIVE); INFLUENZA B NAA NEGATIVE (NEGATIVE)
[2025-03-03 15:52] LABS: RESPIRATORY SYNCYTIAL VIR NAA NEGATIVE (NEGATIVE)
[2025-03-03] MEDS: Docusate Sodium 100 MG Cap PO SCH (16:01)
[2025-03-03] MEDS: Ibuprofen 400 MG Tab PO SCH (16:02)
[2025-03-03] MEDS: Acetaminophen 325 MG Tab PO SCH (16:03)
[2025-03-03] MEDS: MVI, Adult with Vitamin K 10 ML, Folic Acid 1 MG, Thiamine 100 MG in Lactated Ringers 1... IV ONE (17:00)
[2025-03-03 18:15] LABS: T4 FREE 1.08 ng/dL (0.76-1.46); TSH ULTRASENSITIVE 2.83 uIU/mL (0.36-3.74)
[2025-03-03 18:17] LABS: FOLIC ACID > 20.0 ng/mL (8.6-58.9)
[2025-03-03] MEDS: HYDROmorphone 0.5 MG/0.5 ML Syringe IVPUSH PRN (19:37)
[2025-03-03] MEDS: Sodium Chloride 0.9% 10 ML Syringe FLUSH SCH (19:39)
[2025-03-04 06:25] LABS: BASOPHILS PERCENT AUTO 0.7 % (0.0-1.0); EOSINOPHILS PERCENT AUTO 5.1 % (1.0-3.0); HEMATOCRIT 38.4 % (40.0-54.0); HEMOGLOBIN 12.4 g/dL (14.0-18.0); LYMPHOCYTES PERCENT AUTO 31.6 % (20.5-50.1); MEAN CORPUSCULAR HEMOGLOBIN 31.2 pg (27.0-34.0); MEAN CORPUSCULAR HGB CONC 32.3 g/dL (33.0-35.0); MEAN CORPUSCULAR VOLUME 96.7 fL (80-100); MONOCYTES PERCENT AUTO 20.4 % (2-8); NEUTROPHILS PERCENT AUTO 42.2 % (42.2-75.2); PLATELET COUNT,PLT 155 10^3/uL (150-450); RED BLOOD CELL COUNT 3.97 10^6/uL (4.6-6.2); WHITE BLOOD CELL COUNT,WBC 7.1 10^3/uL (5.0-10.0)
[2025-03-04 06:41] LABS: ANION GAP 10.3 mEq/L (7-13); CALCIUM 8.1 mg/dL (8.5-10.1); CREATININE 0.83 mg/dL (0.70-1.30); EST CRCL DRUG DOSING (CG) 103.16 mL/min; POTASSIUM,K 3.3 mmol/L (3.5-5.1)
[2025-03-04] MEDS: Furosemide 20 MG Tab PO SCH (08:44)
[2025-03-04] MEDS: Pravastatin 20 MG Tab PO SCH (08:45)
[2025-03-04] MEDS: Magnesium Oxide 400 MG Tab PO SCH (08:45)
[2025-03-04] MEDS: Folic Acid 1 MG Tab PO SCH (08:46)
[2025-03-04] MEDS: Pantoprazole 40 MG Tab.CR PO SCH (08:46)
[2025-03-04] MEDS: Potassium Chloride 10 MEQ Tab.ER PO ONE (08:48)
[2025-03-04] MEDS: Thiamine 100 MG Tab PO SCH (08:48)
[2025-03-04] MEDS: oxyCODONE 5 MG Tab PO PRN (09:32)
[2025-03-04] MEDS: Potassium Chloride 10 MEQ Tab.ER PO SCH (09:32)
[2025-03-04] MEDS: Metoprolol Succinate 25 MG Tab.ER PO SCH (09:59)
[2025-03-04] MEDS: Isosorbide Mononitrate 60 MG Tab.ER PO SCH (10:00)
[2025-03-05 06:29] LABS: BASOPHILS PERCENT AUTO 0.6 % (0.0-1.0); EOSINOPHILS PERCENT AUTO 5.3 % (1.0-3.0); HEMATOCRIT 41.1 % (40.0-54.0); HEMOGLOBIN 13.4 g/dL (14.0-18.0); LYMPHOCYTES PERCENT AUTO 26.5 % (20.5-50.1); MEAN CORPUSCULAR HEMOGLOBIN 31.3 pg (27.0-34.0); MEAN CORPUSCULAR HGB CONC 32.6 g/dL (33.0-35.0); MONOCYTES PERCENT AUTO 18.5 % (2-8); NEUTROPHILS PERCENT AUTO 49.1 % (42.2-75.2); PLATELET COUNT,PLT 179 10^3/uL (150-450); RED BLOOD CELL COUNT 4.28 10^6/uL (4.6-6.2); WHITE BLOOD CELL COUNT,WBC 6.4 10^3/uL (5.0-10.0)
[2025-03-05 07:02] LABS: A/G RATIO 0.69; ALBUMIN 2.5 g/dL (3.4-5.0); BILIRUBIN TOTAL 0.8 mg/dL (0.2-1.0); CALCIUM 8.4 mg/dL (8.5-10.1); CREATININE 0.75 mg/dL (0.70-1.30); EST CRCL DRUG DOSING (CG) 114.17 mL/min; MAGNESIUM 1.9 mg/dL (1.8-2.4); PROTEIN TOTAL,TP 6.1 g/dL (6.4-8.2)
[2025-03-05] MEDS: Apixaban 5 MG Tab PO SCH (09:16)
[2025-03-05 10:47] LABS: BASO'S 0 /cu mm; EO'S 0 /cu mm; LYMPH'S 886 /cu mm; MONO'S 2659 /cu mm; OTHER 0 /cu mm; PMN'S 14179 /cu mm
[2025-03-05] MEDS: Colchicine 0.6 MG Tab PO ONE ×2 (22:12→23:10)
[2025-03-06 06:49] LABS: BASOPHILS PERCENT AUTO 0.4 % (0.0-1.0); EOSINOPHILS PERCENT AUTO 8.1 % (1.0-3.0); HEMATOCRIT 41.9 % (40.0-54.0); HEMOGLOBIN 13.7 g/dL (14.0-18.0); LYMPHOCYTES PERCENT AUTO 30.8 % (20.5-50.1); MEAN CORPUSCULAR HEMOGLOBIN 31.1 pg (27.0-34.0); MEAN CORPUSCULAR HGB CONC 32.7 g/dL (33.0-35.0); MONOCYTES PERCENT AUTO 16.1 % (2-8); NEUTROPHILS PERCENT AUTO 44.6 % (42.2-75.2); PLATELET COUNT,PLT 204 10^3/uL (150-450); RED BLOOD CELL COUNT 4.41 10^6/uL (4.6-6.2); WHITE BLOOD CELL COUNT,WBC 6.8 10^3/uL (5.0-10.0)
[2025-03-06 07:16] LABS: ALBUMIN 2.6 g/dL (3.4-5.0); BILIRUBIN TOTAL 0.7 mg/dL (0.2-1.0); BUN/CREATININE RATIO 13.1 (No establ ref range); CALCIUM 8.5 mg/dL (8.5-10.1); CREATININE 0.84 mg/dL (0.70-1.30); EST CRCL DRUG DOSING (CG) 101.93 mL/min; PROTEIN TOTAL,TP 6.2 g/dL (6.4-8.2)
[2025-03-06 07:17] LABS: A/G RATIO 0.72
[2025-03-06] MEDS ORDERED: oxyCODONE 5 MG Tab PO PRN (09:12)
[2025-03-06] MEDS: Colchicine 0.6 MG Tab PO SCH (09:30)
[2025-03-06] MEDS: guaiFENesin 600 MG Tab.ER PO SCH (09:57)
[2025-03-06] MEDS: Baclofen 10 MG Tab PO PRN (11:57)
[2025-03-06] MEDS: oxyCODONE 5 MG Tab PO PRN (12:07)
[2025-03-08 23:42] LABS: VITAMIN B1, WHOLE BLOOD 284 nmol/L (70-180)
== END 2025-03-06 13:34 | DRG 556 ==
LOC: DL.ED 09:28 → DL.MS 13:31
PROVIDERS: ADMIT Internal Medicine; ATTEND Student in an Organized Health Care Education/Training Program
DX: M25.561 Pain in right knee (principal); R29.6 Repeated falls; R32 Unspecified urinary incontinence; Z68.34 Body mass index [BMI] 34.0-34.9, adult; S80.01XA Contusion of right knee, initial encounter; M54.6 Pain in thoracic spine; M54.9 Dorsalgia, unspecified; G89.29 Other chronic pain; E66.9 Obesity, unspecified; F12.90 Cannabis use, unspecified, uncomplicated; H26.9 Unspecified cataract; H54.7 Unspecified visual loss; E03.9 Hypothyroidism, unspecified; K21.9 Gastro-esophageal reflux disease without esophagitis; G47.33 Obstructive sleep apnea (adult) (pediatric); M11.231 Other chondrocalcinosis, right wrist; I48.91 Unspecified atrial fibrillation; I10 Essential (primary) hypertension; D64.9 Anemia, unspecified; E87.6 Hypokalemia; E78.00 Pure hypercholesterolemia, unspecified; Z98.890 Other specified postprocedural states; Z72.0 Tobacco use; F17.210 Nicotine dependence, cigarettes, uncomplicated; Z88.8 Allergy status to other drugs, medicaments and biological substances; Z91.041 Radiographic dye allergy status; Z88.5 Allergy status to narcotic agent; Z79.899 Other long term (current) drug therapy; Z79.01 Long term (current) use of anticoagulants; W19.XXXA Unspecified fall, initial encounter
CPT/HCPCS: 0241U; 36415; 72128; 73110-RT; 73560-RT; 80048; 80053; 82140; 82607; 82746; 82945; 83735; 84157; 84425; 84439; 84443; 85025; 85610; 85651; 86140; 86592; 87070; 89051; 89060; 96374; 96376; 97110-GP; 97161-GP; 97165-GO; 97530-GO; 99223; 99232; 99233; 99238; 99283; 99285-25; A9270-GY; J1171; J2004; J3411; J3490; J7120